=== PATIENT | female | born 1965 | race Caucasian/White ===

== ENCOUNTER → 2020-05-14 | Outpatient (CLI) | payer OTHER ==
--- NOTE | 2020-05-14 10:18 | CT ---
EXAMINATION TYPE: CT abdomen pelvis w con DATE OF EXAM: 05/14/2020 HISTORY: Localized swelling, mass; Lower abdominal pain CT DLP: 650.90mGycm Automated Exposure Control for Dose Reduction was Utilized. CONTRAST: CT scan of the abdomen and pelvis is performed with IV Contrast, patient injected with 100 ml mL of I sovue 300. COMPARISON: None. FINDINGS: LUNG BASES: No significant abnormality is appreciated. LIVER/GB: Cholecystectomy clips are present.. PANCREAS: No significant abnormality is seen. SPLEEN: No significant abnormality is seen. ADRENALS: Slight thickening to the left adrenal gland suggesting hyperplasia. Nonspecific heterogeneo us 2.1 x 1.6 cm right adrenal mass. Follow-up advised. KIDNEYS: There is 3 mm nonobstructing calculus upper pole left kidney coronal image 56. There is symm etric cortical medullary uptake and excretion from both kidneys with mild pyelocaliectasis on the lef t but no hydroureter or obstructing ureter calculus seen. No intraluminal calculus in bladder. BOWEL: Oral contrast reaches level of distal transverse colon making the evaluation of distal bowel s lightly suboptimal. No suspicious small or large bowel dilatation is seen. Mild wall thickening in th e left colon. UTERUS/ADNEXA: Uterus suspect is surgically absent. Some residual soft tissue and phleboliths in the pelvis are noted. LYMPH NODES: No greater than 1cm abdominal or pelvic lymph nodes are appreciated. OSSEOUS STRUCTURES: Some ossific fusion of the L3 and L4 vertebra. Lumbar spine alignment satisfactor y. Mild/moderate narrowing and spurring of both hip joints. OTHER: No significant additional abnormality is seen. IMPRESSION: Possible mild distal uncomplicated acute colitis versus product of poor distention. No soto spicious focal mass or fluid collection. Mild left-sided hydronephrosis without delayed excretion. No obstructing mass or calculus.
== END | disposition home or self-care (01) ==
LOC: RADCTMAIN 07:48
PROVIDERS: ATTEND Family Medicine
DX: N13.30 Unspecified hydronephrosis (principal)
CPT/HCPCS: 74177; Q9967

== ENCOUNTER → 2020-06-04 | Outpatient (CLI) | payer OTHER ==
--- NOTE | 2020-06-08 07:39 | MM ---
Reason for exam: screening (asymptomatic). Last mammogram was performed 5 years and 4 months ago. History: Family history of breast cancer in maternal grandmother. Benign ultrasound-guided core biopsy of the right breast, April 27, 2011. Excisional biopsy of the right breast, 2003. Excisional biopsy of the right breast, 2001. Excisional biopsy of the right breast, 1998. Benign excisional biopsy, April 30, 1997. Physical Findings: A clinical breast exam by your physician is recommended on an annual basis and results should be correlated with mammographic findings. MG Screening Mammo w CAD Bilateral CC and MLO view(s) were taken. Prior study comparison: January 28, 2015, bilateral MG diagnostic mammo w CAD [facility]. March 06, 2013, bilateral digital screening mammo w/CAD. The breast tissue is extremely dense which could obscure a lesion on mammography. Previous mammotome biopsy in the right breast. Focal asymmetry increased with calcifications upper inner quadrant 6.2cm from nipple. This finding is changed when compared with previous exams. ASSESSMENT: Incomplete: need additional imaging evaluation, BI-RAD 0 RECOMMENDATION: Special view mammogram of the right breast. If lesion persists on supplemental views, image directed ultrasound is recommended. [facility] will attempt to contact patient to return for supplemental views and ultrasound if indicated.
== END | disposition home or self-care (01) ==
LOC: RADMAMWWP 07:35
PROVIDERS: ATTEND Family Medicine
DX: Z12.31 Encounter for screening mammogram for malignant neoplasm of breast (principal)
CPT/HCPCS: 77067

== ENCOUNTER → 2020-06-04 | Outpatient (CLI) | payer OTHER | END | disposition home or self-care (01) | LOC: LABPAT 07:37 | PROVIDERS: ATTEND Surgery | DX: Z01.818 Encounter for other preprocedural examination (principal); K43.0 Incisional hernia with obstruction, without gangrene | CPT/HCPCS: 86850; 86870; 86880; 86900; 86901 ==

== ENCOUNTER → 2020-06-14 | Outpatient (CLI) | payer OTHER ==
--- NOTE | 2020-06-14 11:21 | MM ---
Reason for exam: additional evaluation requested from abnormal screening. Last mammogram was performed less than 1 month ago. History: Family history of breast cancer in maternal grandmother. Benign ultrasound-guided core biopsy of the right breast, April 27, 2011. Excisional biopsy of the right breast, 2003. Excisional biopsy of the right breast, 2001. Excisional biopsy of the right breast, 1998. Benign excisional biopsy, April 30, 1997. Physical Findings: Patient refused breast exam. MG Work Up Mamm w CAD RT Spot compression CC, spot compression MLO, and LM view(s) were taken of the right breast. Prior study comparison: June 04, 2020, bilateral MG screening mammo w CAD. January 28, 2015, bilateral MG diagnostic mammo w CAD [facility]. The breast tissue is extremely dense which could obscure a lesion on mammography. These results were verbally communicated with the patient and result sheet given to the patient on 06/14/20. ASSESSMENT: Benign, BI-RAD 2 RECOMMENDATION: Return to routine screening mammogram schedule for both breasts.
== END | disposition home or self-care (01) ==
LOC: RADMAMWWP 09:26
PROVIDERS: ATTEND Family Medicine
DX: R92.8 Other abnormal and inconclusive findings on diagnostic imaging of breast (principal)
CPT/HCPCS: 77065

== ENCOUNTER 2020-06-15 07:57 | Day surgery (SDC) | payer OTHER ==
[2020-06-14 09:38] VITALS: BMI 24.4
[~2020-06-15 07:57] MED LIST: ACETAMINOPHEN TAB 500 MG TAB PO ONE; DEXAMETHASONE SOD PHOSPHATE 4 MG/ML 1 ML VIAL IV ONE; LIDOCAINE 1% (10MG/ML) FOR IV START INTRADERMA PRN; MIDAZOLAM 2 MG/2 ML VIAL IV PRN; ONDANSETRON 4 MG/2 ML VIAL IVP ONE
[2020-06-15] MEDS: LACTATED RINGERS 1,000 ML IV SCH ×2 (08:26→13:22)
[2020-06-15] MEDS: HEPARIN SODIUM,PORCINE 5,000 UNIT/ML 1 ML VIAL SQ ONE ×2 (08:27→09:17)
[2020-06-15] MEDS ORDERED: ACETAMINOPHEN TAB 500 MG TAB ONE (08:30)
--- NOTE | 2020-06-15 09:49 | P.GSHP ---
History of Present Illness H&P Date: 06/15/20 Chief Complaint: Incisional hernia This a 55-year-old female who presents today for laparoscopic robotic-assisted repair of incisional hernia. Patient presents history of laparotomy. She has developed incisional hernia near her midportion of her midline scar. Past Medical History Past Medical History: Myocardial Infarction (DC) Additional Past Medical History / Comment(s): INCISIONAL HERNIA, DC ( 35 YRS O LD) Last Myocardial Infarction Date:: 1999 History of Any Multi-Drug Resistant Organisms: None Reported Past Surgical History: Adenoidectomy, Appendectomy, Breast Surgery, Section, Cholecystectomy, Heart Catheterization, Hysterectomy, Tonsillectomy Additional Past Surgical History / Comment(s): RT BREAST BX X 6. COLONOSCOPY. BRONCHOSCOPY Past Anesthesia/Blood Transfusion Reactions: Previous Problems w/ Anesthesia, Motion Sickness, Postoperative Nausea & Vomiting (PONV) Additional Past Anesthesia/Blood Transfusion Reaction / Comment(s): HAS HARD TIME WAKING UP FROM ANESTHESIA. GETS SEVERE PROJECTILE PONV WITH MINIMAL ANESTHESIA Past Psychological History: No Psychological Hx Reported Smoking Status: Never smoker Past Alcohol Use History: None Reported Past Drug Use History: None Reported - Past Family History Mother Family Medical History: Cancer Father Family Medical History: Blood Disorder Additional Family Medical History / Comment(s): HAS CLOTTING DISORDER Medications and Allergies Home Medications Medication Instructions Recorded Confirmed Type Acetaminophen Tab [Tylenol] 650 mg PO Q6H PRN 06/14/20 06/14/20 History Allergy Rx (Unknown Name) 1 tab PO DAILY 06/14/20 History Wheat Germ 1 dose PO DAILY 06/14/20 History Allergies Allergy/AdvReac Type Severity Reaction Status Date / Time codeine Allergy Rash/Hives Verified 06/15/20 08:09 Surgical - Exam Vital Signs Temp Pulse Resp BP Pulse Ox 97.5 F L 84 17 149/71 96 06/15/20 08:17 06/15/20 08:17 06/15/20 08:17 06/15/20 08:17 06/15/20 08:17 - General well developed, well nourished, no distress - Eyes PERRL - ENT normal pinna - Neck no masses - Respiratory normal expansion - Cardiovascular Rhythm: regular - Abdomen 5 cm incisional hernia Abdomen: soft, non tender Assessment and Plan Assessment: Incisional hernia. We'll perform laparoscopic robotic-assisted repair.
[2020-06-15] MEDS ORDERED: NEOSTIGMINE 1 MG/ML 10 ML VIAL ONE (10:04)
[2020-06-15] MEDS ORDERED: ROPIVACAINE 5 MG/ML 30 ML VIAL ONE (10:04)
[2020-06-15] MEDS ORDERED: ROCURONIUM 10 MG/ML (10 ML VIAL) IV ONE (10:04)
[2020-06-15] MEDS ORDERED: fentaNYL (PF) 50 MCG/ML 2 ML AMP ONE (10:04)
[2020-06-15] MEDS ORDERED: ONDANSETRON 4 MG/2 ML VIAL ONE (10:04)
[2020-06-15] MEDS ORDERED: MIDAZOLAM 2 MG/2 ML VIAL ONE (10:04)
[2020-06-15] MEDS ORDERED: DEXAMETHASONE SOD PHOSPHATE 4 MG/ML 1 ML VIAL ONE (10:04)
[2020-06-15] MEDS ORDERED: LIDOCAINE 1% INJ 10MG/ML (20 ML MDV) ONE (10:04)
[2020-06-15] MEDS ORDERED: KETOROLAC 15 MG/ML 1 ML VIAL ONE (10:04)
[2020-06-15] MEDS ORDERED: GLYCOPYRROLATE 0.2 MG/ML 2 ML VIAL ONE (10:04)
[2020-06-15] MEDS ORDERED: SUCCINYLCHOLINE CHLORIDE 100 MG/5 ML SYR IV ONE (10:04)
[2020-06-15] MEDS ORDERED: PROPOFOL 10 MG/ML 20 ML VIAL IV ONE (10:04)
[2020-06-15] MEDS ORDERED: BUPIVACAINE (PF) 0.5% 30 ML VIAL SQ ONE (10:29)
[2020-06-15] MEDS ORDERED: LACTATED RINGERS 1,000 ML IV ONE (11:05)
--- NOTE | 2020-06-15 11:17 | P.OP ---
Date of Procedure: 06/15/20 Preoperative Diagnosis: Incisional hernia Postoperative Diagnosis: Incisional hernia Procedure(s) Performed: Laparoscopic robotic-assisted repair of incisional hernia Partial omentectomy Anesthesia: ELYSE Surgeon: Fabio Acosta Pathology: other (Omentum) Condition: stable Disposition: PACU Description of Procedure: MThe patient was placed on the operating table in the supine position. He received general anesthesia. His abdomen was prepped and draped usual fashion. Using a 5 mm optical trocar under direct visualization the peritoneal cavity was entered in the left upper quadrant. The abdomen was then insufflated. The laparoscope was placed back into the perineal cavity. Next a 8 mm robotic trocar was placed in the left lower quadrant and a 12 mm robotic trocar was placed in the left lateral position. The original 5 mm trocar was exchanged for a 8 mm robotic trocar. The patient's placed in the left side up position. And the patient was docked to the robot. The incisional hernia was visualized. Using hook cautery the peritoneum over the incisional hernia was excised. Incarcerated omentum was dissected free with cautery and sent to pathology. The fascial opening was repaired using 0V LOC suture. Next a piece of 11 cm round ventral light ST mesh was placed into the. Cavity and secured with 2 OV lock suture. The patient was undocked the robot. The needles were retrieved. The fascia of the 12 mm trocar site was closed with 0 Ethibond suture. Skin was closed interrupted 3-0 Monocryl suture. Dermabond dressings was applied. Patient tolerated procedure well and was sent to recovery room stable condition.
[2020-06-15 11:23] VITALS: RESP 16; TEMP 97.9
[2020-06-15] MEDS: HYDROmorphone 0.5 MG/0.5 ML SYRINGE IVP PRN ×2 (11:41→11:51)
--- NOTE | 2020-06-15 12:18 | P.ANPRN ---
Procedure Note - Anesthesia - Nerve Block Performed Bilateral Rectus Abdominis Single Time Out Performed: Yes Date of Procedure: 06/15/20 Procedure Start Time: 09:05 Procedure Stop Time: 09:12 Location of Patient: PreOp Indication: Acute Post-Operative Pain, Requested by Surgeon Sedation Type: Sedate with meaningful contact maintained Position: Supine Needle Types: Pajunk Needle Gauge: 21 Ultrasound used to visualize needle placement: Yes Ultrasound used to observe medication spread: Yes Blood Aspirated: No Pain Paresthesia on Injection Noted: No Resistance on Injection: Normal Image Stored and Saved: Yes Events: Uneventful and Well Tolerated (ropi .5% 20cc plus dexamethasone 4mg bilatreally)
[2020-06-15] MEDS ORDERED: PROMETHAZINE INJ 3.25 MG in SODIUM CHLORIDE 0.9% 50 ML IVPB ONE (15:00)
[2020-06-15 15:33] VITALS: BP 166/78; PULSE 76
== END 2020-06-15 16:49 | disposition home or self-care (01) ==
LOC: OR 07:57
PROVIDERS: ATTEND Surgery
DX: K43.0 Incisional hernia with obstruction, without gangrene (principal); I25.2 Old myocardial infarction; Z98.890 Other specified postprocedural states; Z90.49 Acquired absence of other specified parts of digestive tract; Z98.891 History of uterine scar from previous surgery; Z90.710 Acquired absence of both cervix and uterus; Z83.2 Family history of diseases of the blood and blood-forming organs and certain disorders involving the immune mechanism; Z80.9 Family history of malignant neoplasm, unspecified; Z88.5 Allergy status to narcotic agent; Z79.899 Other long term (current) drug therapy
CPT/HCPCS: 64488; 86900; 86901; 86850; 86870; 86880; 88302; 49655; C1781; J2250; J1644; J1100; J2550; J2710; J0690; J2405; J2001; J3010; J2795; J1885; J0330; J2704; J1170

== ENCOUNTER 2020-06-24 10:00 | Day surgery (SDC) | payer OTHER ==
[2020-06-22 13:52] VITALS: BMI 24.4
[~2020-06-24 10:00] MED LIST changes: -ACETAMINOPHEN TAB 500 MG TAB PO ONE; -DEXAMETHASONE SOD PHOSPHATE 4 MG/ML 1 ML VIAL IV ONE; +LACTATED RINGERS 1,000 ML IV SCH; -MIDAZOLAM 2 MG/2 ML VIAL IV PRN; -ONDANSETRON 4 MG/2 ML VIAL IVP ONE
[2020-06-24 10:49] VITALS: RESP 16; TEMP 98.4
[2020-06-24] MEDS ORDERED: ONDANSETRON 4 MG/2 ML VIAL ONE (11:02)
[2020-06-24] MEDS ORDERED: KETOROLAC 15 MG/ML 1 ML VIAL ONE (11:02)
[2020-06-24] MEDS ORDERED: ONDANSETRON 4 MG/2 ML VIAL IVP ONE (11:07)
[2020-06-24] MEDS ORDERED: KETOROLAC 15 MG/ML 1 ML VIAL IVP ONE (11:07)
--- NOTE | 2020-06-24 11:11 | P.GSHP ---
History of Present Illness H&P Date: 06/24/20 Chief Complaint: Colitis This a 55-year-old female said complaints of abdominal pain. Her recent CAT scan shows evidence of colitis. She presents today for colonoscopy Past Medical History Past Medical History: Myocardial Infarction (DE) Additional Past Medical History / Comment(s): DE (35 YRS OLD), REPAIR OF INCISIONAL HERNIA 06/15/20-STATES INCISION HEALING WITH NO SIGNS OF INFECTION. Last Myocardial Infarction Date:: 1999 History of Any Multi-Drug Resistant Organisms: None Reported Past Surgical History: Adenoidectomy, Appendectomy, Breast Surgery, Section, Cholecystectomy, Hernia Repair, Hysterectomy, Tonsillectomy Additional Past Surgical History / Comment(s): RT BREAST BX X 6, INCISIONAL HERNIA (ROBOTIC-06/15/20). COLONOSCOPY. BRONCHOSCOPY Past Anesthesia/Blood Transfusion Reactions: Previous Problems w/ Anesthesia, Motion Sickness, Postoperative Nausea & Vomiting (PONV) Additional Past Anesthesia/Blood Transfusion Reaction / Comment(s): HAS HARD TIME WAKING UP FROM ANESTHESIA. GETS SEVERE PONV WITH MINIMAL ANESTHESIA Past Psychological History: No Psychological Hx Reported Smoking Status: Never smoker Past Alcohol Use History: None Reported Past Drug Use History: None Reported - Past Family History Mother Family Medical History: Cancer Father Family Medical History: Blood Disorder Additional Family Medical History / Comment(s): HAS CLOTTING DISORDER Medications and Allergies Home Medications Medication Instructions Recorded Confirmed Type Acetaminophen Tab [Tylenol] 650 mg PO Q6H PRN 06/14/20 06/22/20 History Allergy Rx (Unknown Name) 1 tab PO DAILY 06/14/20 06/22/20 History Wheat Germ 1 dose PO DAILY 06/14/20 06/22/20 History Ibuprofen [Motrin] 600 mg PO Q6HR PRN #40 tab 06/15/20 06/22/20 Rx Allergies Allergy/AdvReac Type Severity Reaction Status Date / Time codeine Allergy Rash/Hives Verified 06/24/20 10:49 Surgical - Exam Vital Signs Temp Pulse Resp BP Pulse Ox 98.4 F 90 16 106/84 94 L 06/24/20 10:48 06/24/20 10:48 06/24/20 10:48 06/24/20 10:48 06/24/20 10:48 - General well developed, well nourished, no distress - Eyes PERRL - ENT normal pinna - Neck no masses - Respiratory normal expansion - Cardiovascular Rhythm: regular - Abdomen Abdomen: soft, non tender Assessment and Plan Assessment: Colitis. We'll perform colonoscopy.
[2020-06-24] MEDS ORDERED: PROPOFOL 10 MG/ML 20 ML VIAL IV ONE (11:12)
--- NOTE | 2020-06-24 11:29 | P.OP ---
Date of Procedure: 06/24/20 Preoperative Diagnosis: Colitis Postoperative Diagnosis: Sigmoid colon polyp Diverticulosis Colonic prep Procedure(s) Performed: Colonoscopy Anesthesia: MAC Surgeon: Fabio Acosta Pathology: other (Sigmoid colon polyp) Condition: stable Disposition: PACU Description of Procedure: Patient's placed on the endoscopy table in the lateral position. She received IV sedation. Digital rectal exam was performed which revealed no abnormalities. Flexible colonoscope was then placed patient anus and passed throughout the colon. The patient a very poor colonic prep. There is a large amount of liquid stool colon. The classical cannot be advanced beyond the transverse colon secondary to large amount of liquid stool. Scope was then brought back and descending colon there is diverticular changes. There is more extensive diverticular changes and sigmoid colon; was a peduncular polyp was removed with snare. Scope was brought back the rectum and this appeared normal. Scope was withdrawn for patient.
[2020-06-24 11:45] VITALS: BP 132/84; PULSE 78
== END 2020-06-24 12:17 | disposition home or self-care (01) ==
LOC: ORWHC2ENDO 10:00
PROVIDERS: ATTEND Surgery
DX: D12.5 Benign neoplasm of sigmoid colon (principal); K57.30 Diverticulosis of large intestine without perforation or abscess without bleeding; I25.2 Old myocardial infarction; Z98.890 Other specified postprocedural states; Z90.49 Acquired absence of other specified parts of digestive tract; Z90.710 Acquired absence of both cervix and uterus; Z98.891 History of uterine scar from previous surgery; Z83.2 Family history of diseases of the blood and blood-forming organs and certain disorders involving the immune mechanism; Z79.899 Other long term (current) drug therapy; Z88.5 Allergy status to narcotic agent; Z80.9 Family history of malignant neoplasm, unspecified
CPT/HCPCS: 88305; 45385; J2405; J1885; J2704

== ENCOUNTER → 2020-11-15 | Outpatient (CLI) | payer OTHER ==
--- NOTE | 2020-11-16 04:47 | MR ---
EXAMINATION TYPE: MR abdomen wo/w con DATE OF EXAM: 11/15/2020 COMPARISON: CT abdomen pelvis 05/14/2020. HISTORY: Neoplasm of adrenal gland CONTRAST: Standard multiplanar, multisequence MRI departmental protocol utilizing 7.5 mL intravenous Gadavist g adolinium contrast. Liver has normal signal pattern. The bile ducts are not dilated. Spleen is intact. Stomach is intact. There is no evidence of pancreatic mass. Pancreatic duct appears normal. Gallbladder appears absent. There is no evidence of pleural effusion. There is no pericardial effusion. Kidneys have normal size and contour. There is no hydronephrosis. There is 2 cm mass involving right adrenal gland. This is a somewhat triangle shaped and not changed in size compared to old CT scan of 05/24/2020. The out of phase images show decreased signal that suggests presence of some fat. There is no patholo gic enhancement. There is normal enhancement of the portal venous system. There is normal enhancement of the inferior vena cava and the renal veins. There is no sign of ascites. The lumbar spine is inta ct. I see no bony destructive process. There is no evidence of retroperitoneal adenopathy. IMPRESSION: Triangular-shaped mass on the right adrenal gland not changed in size compared to old exam 6 months a go. There is also some fat content and no pathologic enhancement. Findings suggest benign disease.
== END | disposition home or self-care (01) ==
LOC: RADMRIMAIN 18:18
PROVIDERS: ATTEND Internal Medicine Hematology & Oncology
DX: D44.11 Neoplasm of uncertain behavior of right adrenal gland (principal)
CPT/HCPCS: 74183; A9585

== ENCOUNTER → 2021-05-12 | Outpatient (CLI) | payer OTHER ==
[2021-05-12 19:04] LABS: Basophils # (A) 0.07 X 10*3/uL (0.00-0.10); Eosinophils % (A) 1.4 %; HCT 41.6 % (37.2-46.3); HGB 13.8 g/dL (12.0-15.0); Lymphocytes # (A) 2.37 X 10*3/uL (0.90-5.00); Lymphocytes % (A) 34.1 %; MCH 30.3 pg (27.0-32.0); MCHC 33.2 g/dL (32.0-37.0); MCV 91.4 fL (80.0-97.0); Mean Platelet Volume 10.6 fL (9.5-12.2); Monocytes # (A) 0.51 X 10*3/uL (0.20-1.00); Monocytes % (A) 7.3 %; Neutrophils # (A) 3.86 X 10*3/uL (1.80-7.70); Neutrophils % (A) 55.8 %; Platelet Count 242 X 10*3/uL (140-440); RBC 4.55 X 10*6/uL (4.10-5.20); WBC 6.94 X 10*3/uL (4.50-10.00)
== END | disposition home or self-care (01) ==
LOC: LABWHC1 13:35
PROVIDERS: ATTEND Surgery
DX: K40.90 Unilateral inguinal hernia, without obstruction or gangrene, not specified as recurrent (principal)
CPT/HCPCS: 36415; 85025

== ENCOUNTER 2021-05-18 09:51 | Day surgery (SDC) | payer OTHER ==
[2021-05-16 13:12] VITALS: BMI 24.7
[~2021-05-18 09:51] MED LIST changes: +ACETAMINOPHEN TAB 500 MG TAB PO PRN; +DEXAMETHASONE SOD PHOSPHATE 4 MG/ML 1 ML VIAL IV ONE; +HEPARIN SODIUM,PORCINE/PF 5,000 UNIT/0.5 ML SYRINGE SQ PRN; +MIDAZOLAM 2 MG/2 ML VIAL IV PRN; +ONDANSETRON 4 MG/2 ML VIAL IVP ONE
--- NOTE | 2021-05-18 11:49 | P.GSHP ---
History of Present Illness H&P Date: 05/18/21 Chief Complaint: Right inguinal hernia This a 56-year-old female has developed a right inguinal hernia. Patient presents today for laparoscopic robotic-assisted repair. Past Medical History Past Medical History: No Reported History History of Any Multi-Drug Resistant Organisms: None Reported Past Surgical History: Adenoidectomy, Appendectomy, Breast Surgery, Section, Cholecystectomy, Hernia Repair, Hysterectomy, Tonsillectomy Additional Past Surgical History / Comment(s): RT BREAST BX X 6. COLONOSCOPY. BRONCHOSCOPY Past Anesthesia/Blood Transfusion Reactions: Previous Problems w/ Anesthesia, Motion Sickness, Postoperative Nausea & Vomiting (PONV) Additional Past Anesthesia/Blood Transfusion Reaction / Comment(s): HAS HARD TIME WAKING UP FROM ANESTHESIA. GETS SEVERE PONV WITH MINIMAL ANESTHESIA Past Psychological History: No Psychological Hx Reported Smoking Status: Never smoker Past Alcohol Use History: None Reported Past Drug Use History: None Reported - Past Family History Mother Family Medical History: Cancer Father Family Medical History: Blood Disorder Additional Family Medical History / Comment(s): HAS CLOTTING DISORDER Medications and Allergies Home Medications Medication Instructions Recorded Confirmed Type Acetaminophen Tab [Tylenol] 650 mg PO Q6H PRN 06/14/20 05/16/21 History Allergy Rx (Unknown Name) 1 tab PO DAILY 06/14/20 05/16/21 History Wheat Germ 1 dose PO DAILY 06/14/20 05/16/21 History Aspirin 81 mg PO DAILY 05/16/21 05/16/21 History Digestive Help Pill 1 tab PO DAILY 05/16/21 05/16/21 History Allergies Allergy/AdvReac Type Severity Reaction Status Date / Time codeine Allergy Rash/Hives Verified 05/16/21 13:04 Surgical - Exam - General well developed, well nourished, no distress - Eyes PERRL - ENT normal pinna - Neck no masses - Respiratory normal expansion - Cardiovascular Rhythm: regular - Abdomen Abdomen: soft, non tender Hernia: inguinal (Right) Assessment and Plan Assessment: Right inguinal hernia. We'll perform laparoscopic robotic-assisted repair.
[2021-05-18] MEDS ORDERED: PROPOFOL 10 MG/ML 20 ML VIAL IV ONE (12:08)
[2021-05-18] MEDS ORDERED: fentaNYL (PF) 50 MCG/ML 2 ML AMP ONE (12:08)
[2021-05-18] MEDS ORDERED: KETAMINE 10 MG/ML 20 ML VIAL ONE (12:08)
[2021-05-18] MEDS ORDERED: ROCURONIUM 10 MG/ML (5 ML VIAL) IV ONE (12:08)
[2021-05-18] MEDS ORDERED: diphenhydrAMINE 50 MG/ML 1 ML VIAL ONE (12:08)
[2021-05-18] MEDS ORDERED: LIDOCAINE 1% INJ 10MG/ML (20 ML MDV) ONE (12:08)
[2021-05-18] MEDS ORDERED: GLYCOPYRROLATE 0.2 MG/ML 2 ML VIAL ONE (12:08)
[2021-05-18] MEDS ORDERED: SUCCINYLCHOLINE CHLORIDE 100 MG/5 ML SYR IV ONE (12:08)
[2021-05-18] MEDS ORDERED: MIDAZOLAM 2 MG/2 ML VIAL ONE (12:08)
[2021-05-18] MEDS ORDERED: NEOSTIGMINE 1 MG/ML 10 ML VIAL ONE (12:08)
[2021-05-18] MEDS ORDERED: BUPIVACAINE (PF) 0.5% 30 ML VIAL SQ ONE (12:33)
[2021-05-18] MEDS ORDERED: LACTATED RINGERS 1,000 ML IV ONE (12:37)
--- NOTE | 2021-05-18 13:07 | P.OP ---
Date of Procedure: 05/18/21 Preoperative Diagnosis: Right inguinal hernia Postoperative Diagnosis: Right inguinal hernia Procedure(s) Performed: Laparoscopic robotic-assisted repair of right inguinal hernia Anesthesia: ELYSE Surgeon: Fabio Acosta Estimated Blood Loss (ml): 5 Pathology: none sent Condition: stable Disposition: PACU Description of Procedure: The patient's placed on the operating table in the supine position. The patient received general anesthesia. The patient's abdomen was prepped and draped in usual sterile fashion. The skin was anesthetized 1% local Xylocaine at the incision sites. Using an 11 blade a skin incision was made at the umbilicus. The fascia was grasped with a Ann and then the peritoneal cavity was entered with the Veress needle. Position of the Veress needle was confirmed with a positive drop test. After adequate insufflation a 5 mm trocar was placed into the peritoneal cavity. The Laparoscope was placed the peritoneal cavity. And a robotic 8 mm trocar was placed in the right lateral position and then another 8 mm robotic trochars placed in the left lateral position. The original 5 mm trocar was exchanged for a 12 mm trocar. The patient was placed in reverse Trendelenburg and then the patient was docked to the robot. Next the peritoneum over top of the hernia was incised and then using blunt and sharp dissection and electrocautery the hernia sac was dissected free from the round ligament. The hernia sac was completely reduced into the peritoneal cavity. And then using the Pro first coat sander mesh the hernia was repaired. The peritoneum was then sutured with 20V lock suture. The patient was then undocked the robot. The needle was withdrawn from the peritoneal cavity. The umbilical trocar site was closed with 0 Ethibond suture. The skin was closed interrupted 3-0 Monocryl suture. Dermabond dressing was applied. Patient was sent to recovery in stable condition.
[2021-05-18 13:23] VITALS: TEMP 97
[2021-05-18 13:36] VITALS: RESP 16
[2021-05-18] MEDS ORDERED: ONDANSETRON 4 MG/2 ML VIAL ONE (13:39)
[2021-05-18] MEDS ORDERED: ONDANSETRON 4 MG/2 ML VIAL IVP ONE (13:42)
[2021-05-18] MEDS: HYDROmorphone 0.5 MG/0.5 ML SYRINGE IVP PRN ×2 (13:42→13:54)
[2021-05-18 15:00] VITALS: BP 120/78; PULSE 63
== END 2021-05-18 15:50 | disposition home or self-care (01) ==
LOC: OR 09:51
PROVIDERS: ATTEND Surgery
DX: K40.90 Unilateral inguinal hernia, without obstruction or gangrene, not specified as recurrent (principal); Z98.891 History of uterine scar from previous surgery; Z90.49 Acquired absence of other specified parts of digestive tract; Z90.710 Acquired absence of both cervix and uterus; Z98.890 Other specified postprocedural states; Z79.82 Long term (current) use of aspirin; Z79.899 Other long term (current) drug therapy; Z88.5 Allergy status to narcotic agent
CPT/HCPCS: 49650; S2900

== ENCOUNTER → 2021-06-06 | Outpatient (CLI) | payer OTHER ==
--- NOTE | 2021-06-06 08:55 | US ---
EXAMINATION TYPE: US axilla RT DATE OF EXAM: 06/06/2021 COMPARISON: NONE CLINICAL HISTORY: R59.0 ENLARGES LYMPH NODES. palpable within right axilla x 1 month 2 normal appearing lymph nodes seen, largest = 0.8 x 0.8 x 0.5cm IMPRESSION: Benign right axilla
--- NOTE | 2021-06-07 11:40 | MM ---
Reason for exam: screening (asymptomatic). Last mammogram was performed 1 year ago. History: Family history of breast cancer in maternal grandmother. Benign ultrasound-guided core biopsy of the right breast, April 27, 2011. Excisional biopsy of the right breast, 2003. Excisional biopsy of the right breast, 2001. Excisional biopsy of the right breast, 1998. Benign excisional biopsy, April 30, 1997. Physical Findings: A clinical breast exam by your physician is recommended on an annual basis and results should be correlated with mammographic findings. MG Screening Mammo w CAD Bilateral CC and MLO view(s) were taken. Prior study comparison: June 04, 2020, bilateral MG screening mammo w CAD. January 28, 2015, bilateral MG diagnostic mammo w CAD [facility]. The breast tissue is heterogeneously dense. This may lower the sensitivity of mammography. Finding: There is a 6 mm circumscribed round mass located 9-10 cm from the nipple in the posterior, central position of the left breast. Previous mammotome biopsy in the right breast. There is a chronic nodularity in the right breast. New finding and increase in size since June 04, 2020 and January 28, 2015. ASSESSMENT: Incomplete: need additional imaging evaluation, BI-RAD 0 RECOMMENDATION: Ultrasound of the left breast. [facility] will attempt to contact patient to return for ultrasound.
== END | disposition home or self-care (01) ==
LOC: RADMAMWWP 07:47
PROVIDERS: ATTEND Family Medicine
DX: Z12.31 Encounter for screening mammogram for malignant neoplasm of breast (principal); R59.0 Localized enlarged lymph nodes
CPT/HCPCS: 77067

== ENCOUNTER → 2021-06-10 | Outpatient (CLI) | payer OTHER ==
--- NOTE | 2021-06-10 11:24 | USB ---
Reason for exam: additional evaluation requested from abnormal screening. History: Family history of breast cancer in maternal grandmother. Benign ultrasound-guided core biopsy of the right breast, April 27, 2011. Excisional biopsy of the right breast, 2003. Excisional biopsy of the right breast, 2001. Excisional biopsy of the right breast, 1998. Benign excisional biopsy, April 30, 1997. Physical Findings: Nurse did not find any significant physical abnormalities on exam. US Breast Workup Limited LT Left limited breast ultrasound including focal area of concern, retroareolar and axilla demonstrates a 0.4 x 0.5 x 0.2cm oval lymph node at 4 o'clock and a 0.6 x 0.6 x 0.3cm oval lymph node at 5 o'clock. These results were verbally communicated with the patient and result sheet given to the patient on 06/10/21. ASSESSMENT: Benign, BI-RAD 2 RECOMMENDATION: Follow-up diagnostic mammogram of the left breast in 6 months.
== END | disposition home or self-care (01) ==
LOC: RADUSWWP 07:59
PROVIDERS: ATTEND Family Medicine
DX: R92.8 Other abnormal and inconclusive findings on diagnostic imaging of breast (principal)

== ENCOUNTER → 2021-10-07 | Outpatient (CLI) | payer OTHER ==
--- NOTE | 2021-10-07 12:14 | XR ---
EXAMINATION TYPE: XR abdomen complete w decub DATE OF EXAM: 10/07/2021 COMPARISON: NONE HISTORY: R 10.9 TECHNIQUE: Supine, upright, and left side down lateral decubitus views of the abdomen are obtained f or images. FINDINGS: Surgical clips are present in the right upper quadrant. Retained fecal debris present thro ughout the distribution of the colon. Surgical clips are present in the right hemiabdomen. Multiple p hleboliths are present within the pelvis. There is no evidence for pneumoperitoneum. The bowel gas pattern is unremarkable as there is air throughout nondilated small and large bowel. No sizeable air fluid levels. No mass effects are seen. No unusual calcifications. IMPRESSION: Correlate for fecal stasis. Stopped changes. Follow-up as indicated.
== END | disposition home or self-care (01) ==
LOC: RADXRMAIN 08:58
PROVIDERS: ATTEND Family Medicine
DX: R10.9 Unspecified abdominal pain (principal)
CPT/HCPCS: 74021

== ENCOUNTER → 2022-07-07 | Outpatient (CLI) | payer OTHER ==
--- NOTE | 2022-07-07 10:30 | US ---
EXAMINATION TYPE: US abdomen complete DATE OF EXAM: 07/07/2022 COMPARISON: NONE CLINICAL HISTORY: R10.817 ABDOMINAL TENDERNESS. abdominal tenderness, bloating, cholecystecomy TECHNIQUE: Multiple sonographic images of the abdomen are obtained. FINDINGS: EXAM MEASUREMENTS: Liver Length: 15.1 cm Gallbladder Wall: Surgically absent CBD: 0.7 cm Spleen: 7.9 cm Right Kidney: 10.2 x 3.7 x 4.4 cm Left Kidney: 9.0 x 3.3 x 3.2 cm LANDSCAPER HELPER NOTES: technical limitations due to large amount of overlying bowel content Pancreas: Tail obscured by overlying bowel gas Liver: appears wnl Gallbladder: Surgically absent Evidence for sonographic Baum's sign: no CBD: wnl Spleen: wnl Right Kidney: no evidence of hydronephrosis Left Kidney: limited evaluation, no evidence of hydronephrosis Upper IVC: wnl Abd Aorta: visualized portions appear wnl IMPRESSION: 1. No suspicious acute ultrasound abnormality of the abdomen.
== END | disposition home or self-care (01) ==
LOC: RADUSWWP 08:03
PROVIDERS: ATTEND Family Medicine
DX: R10.817 Generalized abdominal tenderness (principal); Z90.49 Acquired absence of other specified parts of digestive tract
CPT/HCPCS: 76700

== ENCOUNTER 2022-11-15 07:59 | Day surgery (SDC) | payer OTHER ==
[~2022-11-15 07:59] MED LIST changes: +HYDROmorphone 0.5 MG/0.5 ML SYRINGE IVP PRN
[2022-11-15] MEDS: ONDANSETRON 4 MG/2 ML VIAL ONE ×2 (08:39→10:35)
[2022-11-15] MEDS ORDERED: SCOPOLAMINE 1 MG/72 HR PATCH TRANSDERM ONE (08:39)
[2022-11-15] MEDS ORDERED: ROCURONIUM 10 MG/ML (5 ML VIAL) IV ONE (09:22)
[2022-11-15] MEDS ORDERED: GLYCOPYRROLATE 0.2 MG/ML 2 ML VIAL ONE (09:22)
[2022-11-15] MEDS ORDERED: NEOSTIGMINE 1 MG/ML 10 ML VIAL ONE (09:22)
[2022-11-15] MEDS ORDERED: fentaNYL (PF) 50 MCG/ML 2 ML AMP ONE (09:22)
[2022-11-15] MEDS ORDERED: SUCCINYLCHOLINE CHLORIDE 200 MG/10 ML VIAL IV ONE (09:22)
[2022-11-15] MEDS ORDERED: MIDAZOLAM 2 MG/2 ML VIAL ONE (09:22)
[2022-11-15] MEDS ORDERED: PROPOFOL 10 MG/ML 20 ML VIAL IV ONE (09:22)
[2022-11-15] MEDS ORDERED: LIDOCAINE 4% LTA KIT (4 ML) TOPICAL ONE (09:22)
[2022-11-15] MEDS ORDERED: LIDOCAINE 2% INJ 20 MG/ML (2 ML VIAL) ONE (09:22)
[2022-11-15] MEDS ORDERED: PHENYLEPHRINE-0.9% NACL SYG 1,000 MCG/10 ML SYRINGE ONE (09:22)
[2022-11-15] MEDS ORDERED: KETAMINE 10 MG/ML 20 ML VIAL ONE (09:22)
[2022-11-15] MEDS ORDERED: BUPIVACAIN-EPI 0.25%-1:200,000 30 ML VIAL SQ ONE ×2 (09:47→09:54)
[2022-11-15 10:27] VITALS: TEMP 97.1
[2022-11-15 11:22] VITALS: RESP 16
[2022-11-15] MEDS ORDERED: droPERidol 5 MG/2 ML VIAL IVP ONE (12:00)
[2022-11-15 13:46] VITALS: BP 158/78; PULSE 76
--- NOTE | 2022-12-19 19:45 | P.OP ---
Date of Procedure: 11/15/22 Preoperative Diagnosis: Adhesions Postoperative Diagnosis: Adhesions Procedure(s) Performed: Laparoscopic lysis of adhesions Anesthesia: ELYSE Surgeon: Fabio Acosta Pathology: none sent Condition: stable Disposition: PACU Description of Procedure: The patient's placed on the operative table in the supine position. She received general endotracheal anesthesia. Her abdomen was prepped and draped usual sterile fashion. Using 11 blade an infra umbilical incision was made. And then using a pair of [place] clamps the fascia was grasped. The Veress needle was positioned into the pleural cavity. Position there still was confirmed with positive drop test. After adequate insufflation the 5 mm trocar was placed back into the peritoneal cavity. Next the laparoscope placed. Cavity. There were adhesions noted in the right lower quadrant. Next using a 5 mm optical trocar under direct vision a trocar was placed in the suprapubic position and then another eye millimeters trochars placed in the midline epigastric position. The adhesions were visualized right lower quadrant. Using the Harmonic scissors the adhesions were lysed. Care was taken to identify and preserve the bowel. After the adhesions were lysed. The ends for hemostasis. There is no bleeding seen. The trochars withdrawn. The skin was closed interrupted 3-0 Monocryl suture. Dermabond was applied. A shunt top she will sent to recovery in stable condition.
== END 2022-11-15 13:59 | disposition home or self-care (01) ==
LOC: OR 07:59
PROVIDERS: ATTEND Surgery
DX: K66.0 Peritoneal adhesions (postprocedural) (postinfection) (principal); Z88.5 Allergy status to narcotic agent; Z91.048 Other nonmedicinal substance allergy status; K21.9 Gastro-esophageal reflux disease without esophagitis; Z90.49 Acquired absence of other specified parts of digestive tract; Z79.899 Other long term (current) drug therapy
CPT/HCPCS: 44180; J2250; J0330; J1100; J2710; J0690; J2405; J3010; J2370; J2704; J1170; J1790; J1644; J2001

== ENCOUNTER → 2022-12-01 | Outpatient (CLI) | payer OTHER ==
--- NOTE | 2022-12-01 11:13 | PE ---
EXAMINATION TYPE: PET CT fusion skull to thigh DATE OF EXAM: 12/01/2022 COMPARISON: Most recent chest CT October 17, 2022. HISTORY: Solitary pulmonary nodule, abnormal CT. TECHNIQUE: Following the intravenous administration of 13.0 mCi of F-18 FDG, whole body images are p erformed from the skull base to the midthigh. Images are reviewed on the computer in the coronal, ax ial, and sagittal planes. Reconstructed rotating images are created on independent workstation and r eviewed on the computer. A localization and attenuation correction CT is performed in conjunction w ith the PET scan. Blood glucose level equals 100 SCAN: Initial Scan FINDINGS: SKULL BASE AND NECK: No areas of abnormal hypermetabolic uptake. CHEST, MEDIASTINUM, AND HILAR REGION: Stable 7 mm right basilar nodule axial image 99 does not show a bnormal hypermetabolic uptake. No areas of abnormal hypermetabolic uptake in the thorax are seen. ABDOMEN AND PELVIS: Stable low dense approximate 1.7 cm right adrenal mass without abnormal hypermeta bolic uptake consistent with benign lipid rich adenoma. Normal excretion. No areas of suspicious abno rmal hypermetabolic uptake. OSSEOUS STRUCTURES: No areas of abnormal hypermetabolic uptake. OTHER CT: Cardiomegaly is redemonstrated. There is ascending aortic aneurysm up to 4.1 cm. Somewhat s mall size thyroid. Cholecystectomy clips are redemonstrated. There are additional scattered phleboliths in the right pel vis and surgical sutures near the cecum. Uterus is surgically absent. IMPRESSION: No abnormal hypermetabolic uptake to suggest malignancy. Consider CT follow-up in 1 year time to reassess the right basilar subcentimeter nodule.
== END | disposition home or self-care (01) ==
LOC: RADPETMAIN 08:10
PROVIDERS: ATTEND Family Medicine
DX: R91.8 Other nonspecific abnormal finding of lung field (principal)
CPT/HCPCS: 78815; A9552

== ENCOUNTER → 2023-08-09 | Outpatient (CLI) | payer OTHER ==
--- NOTE | 2023-08-09 09:46 | CA ---
Transthoracic Echo Report Name: Vilma Yepez Age: 58 Gender: F : 1965 Exam Date: 08/09/2023 08:41 Exam Location: [facility] Ht (in): 63 Wt (lb): 160 Ordering Physician: Oc Santacruz DO Attending/Referring Phys: Kiera Wade [facility] [employer] Sander Missy Harris [facility] Procedure CPT: Indications: R01.1 cardiac murmur Cardiac Hx: Technical Quality: Fair Contrast 1: Agitated Saline Total Dose (mL): 5 Contrast 2: Total Dose (mL): MEASUREMENTS (Male / Female) Normal Values 2D ECHO LV Diastolic Diameter PLAX 3.7 cm 4.2 - 5.9 / 3.9 - 5.3 cm LV Systolic Diameter PLAX 2.8 cm IVS Diastolic Thickness 1.5 cm 0.6 - 1.0 / 0.6 - 0.9 cm LVPW Diastolic Thickness 1.3 cm 0.6 - 1.0 / 0.6 - 0.9 cm LV Relative Wall Thickness 0.8 LVOT Diameter 2.0 cm Aortic Root Diameter 4.4 cm Ascending Aorta Diameter 4.0 cm M-MODE Aortic Root Diameter MM 3.4 cm LA Systolic Diameter MM 2.7 cm LA Ao Ratio MM 0.8 AV Cusp Separation MM 2.1 cm DOPPLER AV Peak Velocity 92.9 cm/s AV Peak Gradient 3.5 mmHg AV Mean Velocity 66.4 cm/s AV Mean Gradient 2.0 mmHg AV Velocity Time Integral 22.3 cm AI Peak Velocity 375.6 cm/s AI Peak Gradient 56.4 mmHg AI Pressure Half Time 527.8 ms LVOT Peak Velocity 96.5 cm/s LVOT Peak Gradient 3.7 mmHg LVOT Velocity Time Integral 17.5 cm LVOT Stroke Volume 54.1 cm??? LVOT Stroke Volume Index 30.8 ml/m??? LVOT Cardiac Index 2023.9 cm???/min???m??? AV Area Cont Eq vti 2.4 cm??? AV Area Cont Eq pk 3.2 cm??? Mitral E Point Velocity 68.3 cm/s Mitral A Point Velocity 106.6 cm/s Mitral E to A Ratio 0.6 MV Deceleration Time 206.2 ms LV E' Lateral Velocity 5.2 cm/s Mitral E to LV E' Lateral Ratio 13.2 LV E' Septal Velocity 4.4 cm/s Mitral E to LV E' Septal Ratio 15.5 TR Peak Velocity 237.0 cm/s TR Peak Gradient 22.5 mmHg Right Atrial Pressure 3.0 mmHg Pulmonary Artery Systolic Pressu 25.5 mmHg Right Ventricular Systolic Press 25.5 mmHg FINDINGS Left Ventricle Moderately increased septal wall thickness. Mildly increased posterior wall thickness. Left ventricular cavity size normal. Left ventricle wall motion is normal there is mild to moderate concentric LVH. No segmental wall motion abnormality ejection fraction is about 55-60%. Right Ventricle Normal right ventricular size. Right Atrium Normal right atrial size. Suboptimal bubble study because of poor views cannot comment if there is a shunt are not Left Atrium Normal left atrial size. Mitral Valve Structurally normal mitral valve. Trace mitral regurgitation. Aortic Valve Trileaflet aortic valve. [id number] aortic regurgitation. Tricuspid Valve Structurally normal tricuspid valve. Mild tricuspid regurgitation. Pulmonic Valve Pulmonic valve not well visualized. Mild pulmonic regurgitation. Pericardium Minimal pericardial effusion (normal variant). Aorta Moderate aortic dilatation at the level of the sinuses of valsalva (root). Mildly dilated proximal ascending aorta (tube). CONCLUSIONS Normal LV size and systolic function. Suboptimal bubble study cannot comment if there is a shunt. Mild mitral and tricuspid regurgitation. Mild to moderate aortic regurgitation. Minimal pericardial effusion. No pulmonary hypertension Previewed by: Dr. Suresh Martinez MD (Electronically Signed) Final Date: 09 August 2023 09:45
== END | disposition home or self-care (01) ==
LOC: RADECHMAIN 08:11
PROVIDERS: ATTEND Family Medicine
DX: I08.3 Combined rheumatic disorders of mitral, aortic and tricuspid valves (principal); R01.1 Cardiac murmur, unspecified; I31.39 Other pericardial effusion (noninflammatory)
CPT/HCPCS: 93306

== ENCOUNTER → 2023-11-26 | Outpatient (CLI) | payer OTHER ==
--- NOTE | 2023-11-27 12:30 | CT ---
EXAMINATION TYPE: CT chest abdomen w con DATE OF EXAM: 11/26/2023 COMPARISON: PET CT fusion 12/01/2022, CT chest 10/17/2022, CT abdomen 10/05/2022. HISTORY: lung nodule, spot on kidney, evaluate for aneurysm CT DLP: 685.30 mGycm CONTRAST: CT scan of the chest, abdomen is performed without Oral Contrast and with IV Contrast, patient inject ed with 100 mL of Isovue 300. CT Chest: LUNGS: The lungs are clear and free of infiltrate or atelectasis. 7 mm pulmonary nodule right lower l obe near the diaphragm seen on image 48 is essentially unchanged. No hypermetabolic activity seen on prior PET/CT. No pleural effusion or CT evidence of interstitial lung disease. MEDIASTINUM: Thoracic aorta is of normal caliber. The heart is not enlarged. No evidence for media stinal mass or adenopathy. HILAR STRUCTURES: No evidence for mass. No hilar adenopathy is appreciated. OTHER: No significant abnormality. CONTRAST CT ABDOMEN FINDINGS: LIVER/GB: The gallbladder is surgically absent. No space occupying hepatic lesion. Biliary tree is of normal caliber. PANCREAS: No inflammation. No distinct mass. SPLEEN: No splenic enlargement. No lesion seen. ADRENALS: No nodule. No thickening. KIDNEYS/BLADDER: No hydronephrosis. No nephrolithiasis. No disctinct renal mass. BOWEL: Normal appendix. Normal bowel caliber. No inflammation. LYMPH NODES: No greater than 1cm abdominal or pelvic lymph nodes are appreciated. AORTA: No significant abnormality. OSSEOUS STRUCTURES: No significant abnormality is seen. OTHER: No significant additional abnormality is seen. IMPRESSION: 1. Stable right lower lobe pulmonary nodule. 2. No evidence for abdominal aortic aneurysm. 3. No renal lesions seen. Defect left mid kidney may reflect prior biopsy change or prior insult.
--- NOTE | 2023-11-27 14:18 | MM ---
Reason for Exam: Screening (asymptomatic). Last mammogram was performed 1 year(s) and 1 month(s) ago. Patient History: Menarche at age 18. First Full-Term at age 20. Left ovary removed at age 45. Right ovary removed at age 24. Hysterectomy at age 24. 04/27/2011, Benign Ultrasound-Guided Core Biopsy on the right side. 2003, Excisional Biopsy on the Right side. 2001, Excisional Biopsy on the Right side. 1998, Excisional Biopsy on the Right side. Benign Excisional Biopsy. Maternal grandmother had breast cancer. Risk Values: Farida 5 year model risk: 1.6%. NCI Lifetime model risk: 9.3%. Prior Study Comparison: 06/14/2020 Right Diagnostic Mammogram, [facility]. 06/06/2021 Bilateral Screening Mammogram, [facility]. 10/05/2022 Bilateral MG diagnostic mammo w CAD [facility], [facility]. Tissue Density: The breasts are heterogeneously dense, which may obscure small masses. Findings: Analyzed By CAD. There is no suspicious group of microcalcifications or new suspicious mass in either breast. Overall Assessment: Benign, BI-RAD 2 Management: Screening Mammogram of both breasts in 1 year. . Patient should continue monthly self-breast exams. A clinical breast exam by your physician is recommended on an annual basis. This exam should not preclude additional follow-up of suspicious palpable abnormalities. Note on Farida scores and lifetime risk: 1. A Farida score greater than 3% is considered moderate risk. If this is the case, consider specialist referral to assess eligibility for a risk reducing agent. 2. If overall lifetime risk for the development of breast cancer is 20% or higher, the patient may qualify for future screening with alternating mammogram and breast MRI. Electronically signed and approved by: Tom Khoury M.D. Radiologis
== END | disposition home or self-care (01) ==
LOC: RADMAMWWP 07:27
PROVIDERS: ATTEND Family Medicine
DX: Z12.31 Encounter for screening mammogram for malignant neoplasm of breast (principal); R91.8 Other nonspecific abnormal finding of lung field; I71.21 Aneurysm of the ascending aorta, without rupture; R91.1 Solitary pulmonary nodule; Z80.3 Family history of malignant neoplasm of breast
CPT/HCPCS: 77067; 77063; 71260; 74160; Q9967

== ENCOUNTER 2024-09-30 14:50 | Observation (INO) | payer OTHER ==
--- NOTE | 2024-09-30 15:22 | ED ---
General Adult HPI - General Chief complaint: Shortness of Breath Stated complaint: PRINCE, vomiting Time Seen by Provider: 09/30/24 15:08 Source: patient, RN notes reviewed Mode of arrival: ambulatory Limitations: no limitations - History of Present Illness Initial comments: Patient is a 59-year-old female present to the emergency department with concerns with difficulty breathing. Patient started with emesis around 1230. Patient still has nausea and dry heaves. Patient then became short of breath and route to the hospital. Patient also has some chest discomfort and neck and back discomfort. Patient does have concern about recent diagnosis of aortic aneurysm at 4.6 cm. Patient is scheduled to have reimaging in April. Patient has seen cardiology and specialist for this. - Related Data Home Medications Medication Instructions Recorded Confirmed Aspirin 81 mg PO DAILY 05/16/21 09/30/24 Multivitamins, Thera [Multivitamin 1 tab PO Q48H 11/09/22 09/30/24 (formulary)] polyethylene glycoL 3350 [Miralax] 17 gm PO DAILY 11/09/22 09/30/24 Loratadine [Claritin] 10 mg PO DAILY 09/30/24 09/30/24 Vitamin C (Unknown Dose) 1 tab PO DAILY 09/30/24 09/30/24 Vitamin D3 (Unknown Dose) 1 cap PO DAILY 09/30/24 09/30/24 Wheat Germ Oil (Unknown Dose) 1 cap PO DAILY 09/30/24 09/30/24 Allergies Allergy/AdvReac Type Severity Reaction Status Date / Time codeine Allergy Rash/Hives Verified 09/30/24 16:07 tape Allergy Severe Swelling Uncoded 09/30/24 16:07 Review of Systems ROS Statement: Those systems with pertinent positive or pertinent negative responses have been documented in the HPI. ROS Other: All systems not noted in ROS Statement are negative. Constitutional: Denies: fever Eyes: Denies: eye pain ENT: Denies: ear pain Respiratory: Reports: as per HPI, dyspnea. Denies: cough Cardiovascular: Reports: as per HPI, chest pain Endocrine: Denies: fatigue Gastrointestinal: Reports: nausea, vomiting. Denies: abdominal pain Musculoskeletal: Reports: back pain Past Medical History Past Medical History: Myocardial Infarction ([place]) Additional Past Medical History / Comment(s): age 35 yrs, "leaky valve" Last Myocardial Infarction Date:: 1999 History of Any Multi-Drug Resistant Organisms: None Reported Past Surgical History: Adenoidectomy, Appendectomy, Breast Surgery, Section, Cholecystectomy, Heart Catheterization, Hernia Repair, Hysterectomy, Tonsillectomy Additional Past Surgical History / Comment(s): RT BREAST BX X 7, COLONOSCOPY, BRONCHOSCOPY, hernia repair x2, laparoscopic lysis of adhesions, egd/colonsocopy Past Anesthesia/Blood Transfusion Reactions: Previous Problems w/ Anesthesia, Motion Sickness, Postoperative Nausea & Vomiting (PONV) Additional Past Anesthesia/Blood Transfusion Reaction / Comment(s): HAS HARD TIME WAKING UP FROM ANESTHESIA. GETS SEVERE PONV WITH MINIMAL ANESTHESIA Past Psychological History: No Psychological Hx Reported Smoking Status: Never smoker Past Alcohol Use History: None Reported Past Drug Use History: None Reported - Past Family History Mother Family Medical History: Cancer, Coronary Artery Disease (CAD) Father Family Medical History: Blood Disorder, Coronary Artery Disease (CAD) Additional Family Medical History / Comment(s): HAS CLOTTING DISORDER General Exam Limitations: no limitations General appearance: alert, anxious Head exam: Present: normocephalic Eye exam: Present: normal appearance Neck exam: Present: normal inspection Respiratory exam: Present: normal lung sounds bilaterally. Absent: chest wall tenderness Cardiovascular Exam: Present: normal rhythm, tachycardia, normal heart sounds Expanded Peripheral pulses: 2+: Radial (R), Radial (L), Posterior Tibialis (R), Posterior Tibialis (L) GI/Abdominal exam: Present: soft. Absent: tenderness Extremities exam: Present: normal inspection. Absent: pedal edema, calf tenderness Neurological exam: Present: alert Psychiatric exam: Present: anxious Skin exam: Present: normal color Course Vital Signs 09/30/24 09/30/24 14:56 15:18 Temperature 97.6 F Pulse Rate 153 H 138 H Respiratory 36 H 32 H Rate Blood Pressure 131/72 138/80 O2 Sat by Pulse 99 98 Oximetry EKG Findings - EKG Results: EKG: interpreted by ERMD (Left axis. Nonspecific ST-T), sinus rhythm, normal QRS EKG shows: tachycardia Medical Decision Making - Medical Decision Making Was pt. sent in by a medical professional or institution (, PA, AUTO BODY MECHANIC, urgent care, hospital, or fdc...) When possible be specific @ -No Did you speak to anyone other than the patient for history (EMS, parent, family, police, friend...)? What history was obtained from this source @ -No Did you review nursing and triage notes (agree or disagree)? Why? @ -I reviewed and agree with nursing and triage notes Were old charts reviewed (outside hosp., previous admission, EMS record, old EKG, old radiological studies, urgent care reports/EKG's, fdc records)? Report findings @ -No old charts were reviewed Differential Diagnosis (chest pain, altered mental status, abdominal pain women, abdominal pain men, vaginal bleeding, weakness, fever, dyspnea, syncope, headache, dizziness, GI bleed, back pain, seizure, CVA, palpatations, mental health, musculoskeletal)? @ -Differential Chest Pain: Stable Angina, Unstable Angina, STEMI, NSTEMI Aortic Dissection, Pneumothorax, Musculoskeletal, Esophageal Spasm GERD, Cholecystitis, Pancreatitis, Zoster, this is not meant to be an all-inclusive list. EKG interpreted by me (3pts min.). @ -As above X-rays interpreted by me (1pt min.). @ -Chest x-ray questions infiltrates CT interpreted by me (1pt min.). @ -CT scan of the chest unremarkable. No evidence of infiltrates in the lung lan U/S interpreted by me (1pt. min.). @ -None done What testing was considered but not performed or refused? (CT, X-rays, U/S, labs)? Why? @ -None What meds were considered but not given or refused? Why? @ -Considered antibiotics however CT scan is more accurate and there is no sign of infiltrates on that. In addition no symptoms of infection. Did you discuss the management of the patient with other professionals (professionals i.e. , PA, AUTO BODY MECHANIC, lab, RT, psych nurse, rn social services, commodity analyst, teacher, soil science technical officer, caseworker)? Give summary @ -Case was discussed with Dr. Hidalgo who will admit covering Dr. Santacruz Was smoking cessation discussed for >3mins.? @ -No Was critical care preformed (if so, how long)? @ -No Were there social determinants of health that impacted care today? How? (Homelessness, low income, unemployed, alcoholism, drug addiction, transportation, low edu. Level, literacy, decrease access to med. care, prison, rehab)? @ -No Was there de-escalation of care discussed even if they declined (Discuss DNR or withdrawal of care, Hospice)? DNR status @ -No What co-morbidities impacted this encounter? (DM, HTN, Smoking, COPD, CAD, Cancer, CVA, ARF, Chemo, Hep., AIDS, mental health diagnosis, sleep apnea, morbid obesity)? @ -Patient has reported history of aorta aneurysm Was patient admitted / discharged? Hospital course, mention meds given and route, prescriptions, significant lab abnormalities, going to OR and other pertinent info. @ -Patient presents with nausea vomiting, dyspnea and chest discomfort. Patient reevaluated twice and is feeling much better. Patient will be admitted with cardiac consult. Patient updated on results and plan. Admission orders written. Undiagnosed new problem with uncertain prognosis? @ -No Drug Therapy requiring intensive monitoring for toxicity (Heparin, Nitro, Insulin, Cardizem)? @ -No Were any procedures done? @ -No Diagnosis/symptom? @ -Chest pain Acute, or Chronic, or Acute on Chronic? @ -Acute Uncomplicated (without systemic symptoms) or Complicated (systemic symptoms)? @ -Default Side effects of treatment? @ -No Exacerbation, Progression, or Severe Exacerbation? @ -No Poses a threat to life or bodily function? How? (Chest pain, [place], [place], pneumonia, PE, COPD, DKA, ARF, appy, cholecystitis, CVA, Diverticulitis, Homicidal, Suicidal, threat to staff... and all critical care pts) @ -Threat to cardiac function - Lab Data Result diagrams: 09/30/24 15:20 09/30/24 15:20 Lab Results 09/30/24 09/30/24 09/30/24 Range/Units 15:20 15:20 15:20 WBC 9.1 (3.8-10.6) k/uL RBC 4.88 (3.80-5.40) m/uL Hgb 15.2 (11.4-16.0) gm/dL Hct 44.2 (34.0-46.0) % MCV 90.6 (80.0-100.0) fL MCH 31.2 (25.0-35.0) pg MCHC 34.5 (31.0-37.0) g/dL RDW 12.9 (11.5-15.5) % Plt Count 287 (150-450) k/uL MPV 7.6 Neutrophils % 68 % Lymphocytes % 26 % Monocytes % 4 % Eosinophils % 1 % Basophils % 0 % Neutrophils # 6.2 (1.3-7.7) k/uL Lymphocytes # 2.3 (1.0-4.8) k/uL Monocytes # 0.3 (0-1.0) k/uL Eosinophils # 0.1 (0-0.7) k/uL Basophils # 0.0 (0-0.2) k/uL PT 10.8 (10.0-12.5) sec INR 1.0 (<1.2) APTT 23.2 (22.0-30.0) sec Sodium 140 (137-145) mmol/L Potassium 3.3 L (3.5-5.1) mmol/L Chloride 103 (98-107) mmol/L Carbon Dioxide 14 L (22-30) mmol/L Anion Gap 23 mmol/L BUN 10 (7-17) mg/dL Creatinine 0.94 (0.52-1.04) mg/dL Est GFR (CKD-EPI)AfAm 77 (>60 ml/min/1.73 sqM) Est GFR (CKD-EPI)NonAf 67 (>60 ml/min/1.73 sqM) Glucose 153 H (74-99) mg/dL Calcium 10.3 H (8.4-10.2) mg/dL Magnesium 1.9 (1.6-2.3) mg/dL Total Bilirubin 0.6 (0.2-1.3) mg/dL AST 28 (14-36) U/L ALT 29 (4-34) U/L Alkaline Phosphatase 108 (38-126) U/L Troponin I (0.000-0.034) ng/mL NT-Pro-B Natriuret Pep 133 pg/mL Total Protein 8.0 (6.3-8.2) g/dL Albumin 4.9 (3.5-5.0) g/dL Amylase 59 (30-110) U/L Lipase 85 (23-300) U/L 09/30/ Range/Units 15:20 WBC (3.8-10.6) k/uL RBC (3.80-5.40) m/uL Hgb (11.4-16.0) gm/dL Hct (34.0-46.0) % MCV (80.0-100.0) fL MCH (25.0-35.0) pg MCHC (31.0-37.0) g/dL RDW (11.5-15.5) % Plt Count (150-450) k/uL MPV Neutrophils % % Lymphocytes % % Monocytes % % Eosinophils % % Basophils % % Neutrophils # (1.3-7.7) k/uL Lymphocytes # (1.0-4.8) k/uL Monocytes # (0-1.0) k/uL Eosinophils # (0-0.7) k/uL Basophils # (0-0.2) k/uL PT (10.0-12.5) sec INR (<1.2) APTT (22.0-30.0) sec Sodium (137-145) mmol/L Potassium (3.5-5.1) mmol/L Chloride (98-107) mmol/L Carbon Dioxide (22-30) mmol/L Anion Gap mmol/L BUN (7-17) mg/dL Creatinine (0.52-1.04) mg/dL Est GFR (CKD-EPI)AfAm (>60 ml/min/1.73 sqM) Est GFR (CKD-EPI)NonAf (>60 ml/min/1.73 sqM) Glucose (74-99) mg/dL Calcium (8.4-10.2) mg/dL Magnesium (1.6-2.3) mg/dL Total Bilirubin (0.2-1.3) mg/dL AST (14-36) U/L ALT (4-34) U/L Alkaline Phosphatase (38-126) U/L Troponin I <0.012 (0.000-0.034) ng/mL NT-Pro-B Natriuret Pep pg/mL Total Protein (6.3-8.2) g/dL Albumin (3.5-5.0) g/dL Amylase (30-110) U/L Lipase (23-300) U/L Disposition Clinical Impression: Chest pain Disposition: ADMITTED IP TO THIS [facility] Is patient prescribed a controlled substance at d/c from ED?: No Referrals: Oc Santacruz DO [Primary Care Provider] - 1-2 days Time of Disposition: 17:13
[2024-09-30] MEDS: SODIUM CHLORIDE 0.9% 1,000 ML IV STA (15:25)
[2024-09-30] MEDS: ASPIRIN 81 MG PO STA (15:26)
[2024-09-30] MEDS: ONDANSETRON 4 MG/2 ML VIAL IVP STA ×2 (15:26→16:08)
[2024-09-30] MEDS: MORPHINE SULFATE 4 MG/ML SYRINGE IV STA (15:28)
[2024-09-30 15:32] LABS: Basophils % (A) 0 %; Eosinophils # (A) 0.1 k/uL (0-0.7); Eosinophils % (A) 1 %; HCT 44.2 % (34.0-46.0); HGB 15.2 gm/dL (11.4-16.0); Lymphocytes # (A) 2.3 k/uL (1.0-4.8); Lymphocytes % (A) 26 %; MCH 31.2 pg (25.0-35.0); MCHC 34.5 g/dL (31.0-37.0); MCV 90.6 fL (80.0-100.0); Mean Platelet Volume 7.6; Monocytes # (A) 0.3 k/uL (0-1.0); Monocytes % (A) 4 %; Neutrophils # (A) 6.2 k/uL (1.3-7.7); Neutrophils % (A) 68 %; Platelet Count 287 k/uL (150-450); RBC 4.88 m/uL (3.80-5.40); RDW 12.9 % (11.5-15.5); WBC 9.1 k/uL (3.8-10.6)
[2024-09-30 15:39] LABS: Partial Thromboplastin Time 23.2 sec (22.0-30.0); Prothrombin Time 10.8 sec (10.0-12.5)
[2024-09-30 15:49] LABS: AST 28 U/L (14-36); African American GFR (CKD) 77 (>60 ml/min/1.73 sqM); Albumin 4.9 g/dL (3.5-5.0); Alkaline Phosphatase 108 U/L (38-126); Amylase 59 U/L (30-110); Anion Gap 23 mmol/L; Blood Urea Nitrogen 10 mg/dL (7-17); Calcium 10.3 mg/dL (8.4-10.2); Carbon Dioxide 14 mmol/L (22-30); Chloride 103 mmol/L (98-107); Glucose 153 mg/dL (74-99); Lipase 85 U/L (23-300); Magnesium 1.9 mg/dL (1.6-2.3); Non-African American GFR(CKD) 67 (>60 ml/min/1.73 sqM); Potassium 3.3 mmol/L (3.5-5.1); Sodium 140 mmol/L (137-145); Total Bilirubin 0.6 mg/dL (0.2-1.3)
[2024-09-30 15:56] LABS: ALT 29 U/L (4-34)
[2024-09-30] MEDS: FAMOTIDINE 20 MG/2 ML VIAL IV STA (16:08)
[2024-09-30 16:12] LABS: NT-Pro-B-Type Natriuretic Pept 133 pg/mL
--- NOTE | 2024-09-30 16:25 | XR ---
EXAMINATION TYPE: XR chest 1V portable DATE OF EXAM: 09/30/2024 4:21 PM COMPARISON: None. CLINICAL INDICATION: Female, 59 years old with history of chest pain, TECHNIQUE: XR chest 1V portable view(s) obtained. FINDINGS: The heart size is normal. The pulmonary vasculature is normal. Right lower lobe infiltrate is present. Correlate for pneumonia. Some subsegmental atelectasis or pn eumonia may be at the left base IMPRESSION: 1. Bibasilar infiltrates more consolidated at the right base. Correlate for pneumonia. Subsegmental a telectasis could be considered. [facility], , 09/30/2024 4:23 PM
--- NOTE | 2024-09-30 16:32 | CT ---
CTA chest and abdomen. HISTORY: Chest pain COMPARISON: CT chest and abdomen dated 11/26/2023. TECHNIQUE: Multiple axial images are obtained through the chest and abdomen following the uneventful menstruation nonionic IV contrast. Exam was performed according to department CTA protocol. 3-D postp rocessing was performed. MIPS images were generated and reviewed. FINDINGS: The thoracic and abdominal aorta are normal without aneurysm, dissection or intraluminal thrombus. Th e mesenteric and renal arteries are widely patent. The iliac arteries are normal without aneurysm. There is a stable 10 mm nodule in the right lower lobe small central calcification. There is no airspace consolidation or abnormal interstitial density. There is no pleural effusion or pneumothorax. There is no adenopathy within the chest. There is surgical absence of the gallbladder. There is no focal mass or organomegaly involving liver, pancreas, or spleen. There is a stable 2.3 cm nodule of the right adrenal gland which most likely represents benign adenoma. There is no solid renal mass or hydronephrosis. There is no retroperitoneal adenopathy. The bowel loops are normal in caliber and there is no dilatation or obstruction. No inflammatory nielson ges are identified in the bowel wall and mesentery. No free intraperitoneal air or fluid. No pelvic mass or adenopathy. There are surgical absence of the uterus. There are no focal osseous lesions. IMPRESSION: 1. No aneurysm, dissection, intraluminal filling defect or stenosis within the thoracic or abdominal aorta. 2. Stable 10 mm benign right lower lobe pulmonary nodule. 3. Stable 2.3 cm right adrenal adenoma. 4. No acute changes within the chest or abdomen. [facility], , 09/30/2024 4:30 PM
[2024-09-30] MEDS ORDERED: NITROGLYCERIN SL TABS 0.4 MG TAB SUBLINGUAL PRN (17:13)
[2024-09-30] MEDS: NITROGLYCERIN OINT 1 INCH/GM PACKET TOPICAL SCH (18:16)
[2024-09-30] MEDS: ACETAMINOPHEN IV (For NPO) 1,000 MG in EMPTY BAG 1 BAG IVPB ONE (18:44)
[2024-10-01] MEDS: ONDANSETRON ODT 4 MG TAB PO PRN (01:29)
[2024-10-01] MEDS: ACETAMINOPHEN TAB 325 MG TAB PO PRN (01:29)
[2024-10-01 07:46] VITALS: RESP 17
[2024-10-01] MEDS: ASPIRIN 81 MG PO SCH (08:50)
[2024-10-01] MEDS: LOSARTAN 25 MG TAB PO SCH (08:51)
[2024-10-01] MEDS: LORATADINE 10 MG TAB PO SCH (08:51)
[2024-10-01] MEDS: polyethylene glycoL 3350 17 GM POWD.PACK PO SCH (08:52)
[2024-10-01] MEDS ORDERED: WHEAT GERM OIL PO SCH (09:00)
[2024-10-01] MEDS ORDERED: ASPIRIN 325 MG TAB PO SCH (09:00)
[2024-10-01] MEDS ORDERED: LOSARTAN 25 MG TAB PO SCH (09:00)
[2024-10-01] MEDS ORDERED: VITAMIN C PO SCH (09:00)
[2024-10-01] MEDS ORDERED: VITAMIN D3 PO SCH (09:00)
[2024-10-01 09:32] LABS: Chol/HDL Ratio 4.84 Ratio; LDL Cholesterol,Calculated 177.5 mg/dL (0.0-131.0)
[2024-10-01 10:02] LABS: Influenza A Not Detected (Not Detectd); Influenza B Not Detected (Not Detectd); RSV Not Detected (Not Detectd)
--- NOTE | 2024-10-01 10:24 | P.CRDCN ---
History of Present Illness History of present illness: HISTORY OF PRESENT ILLNESS: This is a 59-year-old female with a past medical history significant for aortic regurgitation and ascending aortic aneurysm. Patient follows in the office with Dr. Pineda. We have been asked to see the patient in consultation for chest pain. Patient examined at the bedside. Patient states yesterday she began to have nausea and dry heaves. She reports she then started to have some shortness of breath along with back pain and chest pain. She has a known history of an ascending aortic aneurysm and is concerned that it may be related to that so she came to the ER for further evaluation. The patient denies any further episodes of chest pain or shortness of breath. She still had some nausea and dry heaves overnight. Vital signs are stable. The patient has recently established with a physician at [facility] for her ascending aortic aneurysm. She states she is scheduled to undergo repeat imaging in October. DIAGNOSTICS: - EKG reveals sinus tachycardia with no signs of acute ischemia. - Chest xray bibasilar infiltrates more consolidated at the right base. Correlate for pneumonia. Subsegmental atelectasis could be considered. -CTA chest and abdomen: No aneurysm, dissection, intraluminal filling defect or stenosis within the thoracic or abdominal aorta. Stable 10 mm benign right lower lobe pulmonary nodule. Stable 2.3 cm right adrenal adenoma. No acute changes within the chest or abdomen - Laboratory data: WBC 9.1. Hemoglobin 15.2. Platelet count 2 87. Sodium 140. Potassium 3.3. BUN 10. Creatinine 0.94. Troponin negative x 3. Cholesterol 256. LDL 177. LDL 52.9. 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 -Patient underwent stress testing in September 2023 which revealed fair exercise tolerance, no symptoms typical of angina, no dysrhythmias were noted. Nondiagnostic electrocardiographic stress test secondary to baseline EKG abnormalities REVIEW OF SYSTEMS: At the time of my exam: CONSTITUTIONAL: Denies fever or chills. HEENT: Denies blurred vision, vision changes, or eye pain. Denies hemoptysis CARDIOVASCULAR: Denies chest pain. Denies orthopnea. Denies PND. Denies palpitations RESPIRATORY: Denies shortness of breath. GASTROINTESTINAL: Denies abdominal pain. Denies nausea or vomiting. HEMATOLOGIC: Denies bleeding disorders. GENITOURINARY: Denies any blood in urine. SKIN: Denies pruitis. Denies rash. PHYSICAL EXAM: VITAL SIGNS: Reviewed. GENERAL: Well-developed in no acute distress. HEENT: Head is normocephalic. Pupils are equal, round. Sclerae anicteric. Mucous membranes of the mouth are moist. Neck supple. No JVD or thyromegaly LUNGS: Respirations even and unlabored. Lungs essentially clear to auscultation bilaterally. HEART: Regular rate and rhythm. S1 and S2 heard. Diastolic murmur noted. ABDOMEN: Soft. Nondistended. Nontender. EXTREMITIES: Normal range of motion. No clubbing or cyanosis. Peripheral pulses intact. No lower extremity edema NEUROLOGIC: Awake and alert. Oriented x 3. 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, per BRUCE 09/09/2024 Valvular heart disease including moderate to severe aortic regurgitation, mild mitral regurgitation, mild tricuspid regurgitation Hyperlipidemia, total cholesterol 256, LDL 177 PLAN: An acute coronary event has been ruled out No need to repeat echocardiogram as this was performed in the office in August 2024 Add atorvastatin 40 mg at night due to elevated lipid panel Add losartan 12.5 mg daily Continue home dose of aspirin 81 mg daily Check patient for COVID, RSV, and influenza Patient is currently stable for discharge from a cardiac perspective Patient to follow-up postdischarge with Dr. Pineda and also with her physician at [facility] Nurse practitioner note has been reviewed by physician. Signing provider agrees with the documented findings, assessment, and plan of care documented by ICT HELP DESK OFFICER as a scribe. Past Medical History Past Medical History: Myocardial Infarction ([place]) Additional Past Medical History / Comment(s): age 35 yrs, "leaky valve" Last Myocardial Infarction Date:: 1999 History of Any Multi-Drug Resistant Organisms: None Reported Past Surgical History: Adenoidectomy, Appendectomy, Breast Surgery, Section, Cholecystectomy, Heart Catheterization, Hernia Repair, Hysterectomy, Tonsillectomy Additional Past Surgical History / Comment(s): RT BREAST BX X 7, COLONOSCOPY, BRONCHOSCOPY, hernia repair x2, laparoscopic lysis of adhesions, egd/colonsocopy Past Anesthesia/Blood Transfusion Reactions: Previous Problems w/ Anesthesia, Motion Sickness, Postoperative Nausea & Vomiting (PONV) Additional Past Anesthesia/Blood Transfusion Reaction / Comment(s): HAS HARD TIME WAKING UP FROM ANESTHESIA. GETS SEVERE PONV WITH MINIMAL ANESTHESIA Past Psychological History: No Psychological Hx Reported Smoking Status: Never smoker Past Alcohol Use History: None Reported Past Drug Use History: None Reported - Past Family History Mother Family Medical History: Cancer, Coronary Artery Disease (CAD) Father Family Medical History: Blood Disorder, Coronary Artery Disease (CAD) Additional Family Medical History / Comment(s): HAS CLOTTING DISORDER Medications and Allergies Home Medications Medication Instructions Recorded Confirmed Type Aspirin 81 mg PO DAILY 05/16/21 09/30/24 History Multivitamins, Thera [Multivitamin 1 tab PO Q48H 11/09/22 09/30/24 History (formulary)] polyethylene glycoL 3350 [Miralax] 17 gm PO DAILY 11/09/22 09/30/24 History Loratadine [Claritin] 10 mg PO DAILY 09/30/24 09/30/24 History Vitamin C (Unknown Dose) 1 tab PO DAILY 09/30/24 09/30/24 History Vitamin D3 (Unknown Dose) 1 cap PO DAILY 09/30/24 09/30/24 History Wheat Germ Oil (Unknown Dose) 1 cap PO DAILY 09/30/24 09/30/24 History Allergies Allergy/AdvReac Type Severity Reaction Status Date / Time codeine Allergy Rash/Hives Verified 09/30/24 16:07 tape Allergy Severe Swelling Uncoded 09/30/24 16:07 Physical Exam Vitals: Vital Signs Temp Pulse Pulse Resp BP BP Pulse Ox 10/01/24 07:00 97.9 F 93 17 137/72 99 10/01/24 01:01 98.6 F 89 19 135/76 96 09/30/24 21:29 97.7 F 91 18 99/64 96 09/30/24 21:26 98.3 F 90 18 126/84 99 09/30/24 19:25 98.4 F 98 18 115/79 97 09/30/24 19:01 98.2 F 98 18 125/66 98 09/30/24 15:18 138 H 32 H 138/80 98 09/30/24 14:56 97.6 F 153 H 36 H 131/72 99 Intake and Output 09/30/24 10/01/24 10/01/24 22:59 06:59 14:59 Other: Voiding Method Toilet Toilet # Voids 1 1 Weight 58.513 kg Results 09/30/24 15:20 09/30/24 15:20 Cardiac Enzymes 09/30/24 09/30/24 09/30/24 Range/Units 15:20 15:20 18:31 AST 28 (14-36) U/L Troponin I <0.012 0.017 (0.000-0.034) ng/mL 09/30/24 Range/Units 22:02 AST (14-36) U/L Troponin I 0.017 (0.000-0.034) ng/mL Coagulation 09/30/24 Range/Units 15:20 PT 10.8 (10.0-12.5) sec APTT 23.2 (22.0-30.0) sec CBC 09/30/24 Range/Units 15:20 WBC 9.1 (3.8-10.6) k/uL RBC 4.88 (3.80-5.40) m/uL Hgb 15.2 (11.4-16.0) gm/dL Hct 44.2 (34.0-46.0) % Plt Count 287 (150-450) k/uL Comprehensive Metabolic Panel 09/30/24 Range/Units 15:20 Sodium 140 (137-145) mmol/L Potassium 3.3 L (3.5-5.1) mmol/L Chloride 103 (98-107) mmol/L Carbon Dioxide 14 L (22-30) mmol/L BUN 10 (7-17) mg/dL Creatinine 0.94 (0.52-1.04) mg/dL Glucose 153 H (74-99) mg/dL Calcium 10.3 H (8.4-10.2) mg/dL AST 28 (14-36) U/L ALT 29 (4-34) U/L Alkaline Phosphatase 108 (38-126) U/L Total Protein 8.0 (6.3-8.2) g/dL Albumin 4.9 (3.5-5.0) g/dL Current Medications Generic Name Dose Route Start Last Admin Trade Name Freq PRN Reason Stop Dose Admin Acetaminophen 650 mg 10/01/24 01:09 10/01/24 01:29 Acetaminophen Tab 325 Mg Tab PO 650 mg Q6HR PRN Administration Fever and/ or Pain Aspirin 325 mg 10/01/24 09:00 Aspirin 325 Mg Tab PO DAILY FLORENTIN Loratadine 10 mg 10/01/24 09:00 Loratadine 10 Mg Tab PO DAILY FLORENTIN Multivitamins 1 each 10/02/24 09:00 Multivitamins, Thera 1 Each Tab PO Q48H FLORENTIN Nitroglycerin 0.4 mg 09/30/24 17:13 Nitroglycerin Sl Tabs 0.4 Mg Tab SUBLINGUAL Q5M PRN Chest Pain Nitroglycerin 1 inch 09/30/24 18:00 10/01/24 05:59 Nitroglycerin Oint 1 Inch/Gm Packet TOPICAL Not Given Q6HR FLORENTIN Ondansetron HCl 4 mg 10/01/24 01:09 10/01/24 01:29 Ondansetron Odt 4 Mg Tab PO 4 mg Q8HR PRN Administration nausea Polyethylene Glycol 17 gm 10/01/24 09:00 Polyethylene Glycol 3350 17 Gm Powd.Pack PO DAILY FLORENTIN Intake and Output 09/30/24 10/01/24 10/01/24 22:59 06:59 14:59 Other: Voiding Method Toilet Toilet # Voids 1 1 Weight 58.513 kg 09/30/24 15:20 09/30/24 15:20
[2024-10-01] MEDS: POTASSIUM CHLORIDE ER 20 MEQ TAB.ER PO STA (11:21)
[2024-10-01 14:21] VITALS: BP 122/69; PULSE 71; TEMP 98.2
--- NOTE | 2024-10-01 14:29 | P.HPIM ---
History of Present Illness H&P Date: 10/01/24 This is a pleasant 59-year-old female with medical history significant for myocardial infarction, leaky valve, heart catheterization, multiple surgeries including appendectomy cholecystectomy. Patient presents to the the hospital with complaints of fever chills nausea vomiting as well as a 1 day history of chest pain and back pain. Patient states that the pain came out of nowhere while she was sitting had not done any strenuous activity states that the pain is not a burning-like sensation and not associated with food. Denies any shortness of breath, dizziness or lightheadedness she denies any syncopal episodes or diaphoresis. At the time of my evaluation the pain is currently gone. She was recently diagnosed with an aortic aneurysm per the patient. Following with Dr. Shirley in the office recently had a transesophageal echocardiogram completed on September 09 showing an aneurysm of the sinus of Valsalva with dilated aortic sinuses measuring 4.4 cm. Patient is scheduled to undergo a cardiac CT at [facility] on November 03 and has established with Dr. Kee out of [facility] for cardiothoracic surgery. Patient CBC is completely unremarkable, sodium of 140, potassium 3.3, BUN of 10 creatinine 0.94, calcium of 10.3, troponin level is negative x 3. Her lipid panel reveals a triglyceride level of 128 cholesterol 256, LDL of 177 and HDL of 52. Patient's viral panel was negative for influenza RSV and COVID. REVIEW OF SYSTEMS: CONSTITUTIONAL: No fever, no malaise, no fatigue. HEENT: No recent visual problems or hearing problems. Denied any sore throat. CARDIOVASCULAR: No chest pain, orthopnea, PND, no palpitations, no syncope. PULMONARY: No shortness of breath, no cough, no hemoptysis. GASTROINTESTINAL: No diarrhea, no nausea, no vomiting, no abdominal pain. NEUROLOGICAL: No headaches, no weakness, no numbness. HEMATOLOGICAL: Denies any bleeding or petechiae. GENITOURINARY: Denies any burning micturition, frequency, or urgency. MUSCULOSKELETAL/RHEUMATOLOGICAL: Denies any joint pain, swelling, or any muscle pain. ENDOCRINE: Denies any polyuria or polydipsia. The rest of the 14-point review of systems is negative. PHYSICAL EXAMINATION: GENERAL: The patient is alert and oriented x3, not in any acute distress. Well developed, well nourished. HEENT: Pupils are round and equally reacting to light. EOMI. No scleral icterus. No conjunctival pallor. Normocephalic, atraumatic. No pharyngeal erythema. No thyromegaly. CARDIOVASCULAR: S1 and S2 present. No murmurs, rubs, or gallops. PULMONARY: Chest is clear to auscultation, no wheezing or crackles. ABDOMEN: Soft, nontender, nondistended, normoactive bowel sounds. No palpable organomegaly. MUSCULOSKELETAL: No joint swelling or deformity. EXTREMITIES: No cyanosis, clubbing, or pedal edema. NEUROLOGICAL: Gross neurological examination did not reveal any focal deficits. SKIN: No rashes. 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 Patient is completing outpatient follow up for this at [facility] GI prophylaxis NO Code Plan Patient has been evaluated by cardiology No plans for repeat echoardiogram at this time Patient has been started on atorvastatin 40 mg daily Patient has been started on 12.5 mg losartan daily Cleared from a cardiac standpoint Patient to continue supportive care Nausea and vomiting have resolved likely a viral etiology; procalcitonin level pending Replace potassium with 40 eq x 1. Discharge home and follow up with CT surgery Dr. Kee as prior arranged Follow up with Dr shirley in the office 1 to 2 weeks The impression and plan of care has been dictated by Siobhan Peterson Nurse Practitioner as directed. Dr. Josué MD I have performed a history and physical examination and medical decision making of this patient, discussed the same with the dictator, and agree with the dictators assessment and plan as written, documented as a scribe. Based on total visit time, I have performed more than 50% of this visit. Past Medical History Past Medical History: Myocardial Infarction ([place]) Additional Past Medical History / Comment(s): age 35 yrs, "leaky valve" Last Myocardial Infarction Date:: 1999 History of Any Multi-Drug Resistant Organisms: None Reported Past Surgical History: Adenoidectomy, Appendectomy, Breast Surgery, Section, Cholecystectomy, Heart Catheterization, Hernia Repair, Hysterectomy, Tonsillectomy Additional Past Surgical History / Comment(s): RT BREAST BX X 7, COLONOSCOPY, BRONCHOSCOPY, hernia repair x2, laparoscopic lysis of adhesions, egd/colonsocopy Past Anesthesia/Blood Transfusion Reactions: Previous Problems w/ Anesthesia, Motion Sickness, Postoperative Nausea & Vomiting (PONV) Additional Past Anesthesia/Blood Transfusion Reaction / Comment(s): HAS HARD TIME WAKING UP FROM ANESTHESIA. GETS SEVERE PONV WITH MINIMAL ANESTHESIA Past Psychological History: No Psychological Hx Reported Smoking Status: Never smoker Past Alcohol Use History: None Reported Past Drug Use History: None Reported - Past Family History Mother Family Medical History: Cancer, Coronary Artery Disease (CAD) Father Family Medical History: Blood Disorder, Coronary Artery Disease (CAD) Additional Family Medical History / Comment(s): HAS CLOTTING DISORDER Medications and Allergies Home Medications Medication Instructions Recorded Confirmed Type Aspirin 81 mg PO DAILY 05/16/21 09/30/24 History Multivitamins, Thera [Multivitamin 1 tab PO Q48H 11/09/22 09/30/24 History (formulary)] polyethylene glycoL 3350 [Miralax] 17 gm PO DAILY 11/09/22 09/30/24 History Loratadine [Claritin] 10 mg PO DAILY 09/30/24 09/30/24 History Vitamin C (Unknown Dose) 1 tab PO DAILY 09/30/24 09/30/24 History Vitamin D3 (Unknown Dose) 1 cap PO DAILY 09/30/24 09/30/24 History Wheat Germ Oil (Unknown Dose) 1 cap PO DAILY 09/30/24 09/30/24 History Atorvastatin [Lipitor] 40 mg PO HS #30 tab 10/01/24 Rx Losartan [Cozaar] 12.5 mg PO DAILY #30 tab 10/01/24 Rx Nitroglycerin Sl Tabs [Nitrostat] 0.4 mg SUBLINGUAL Q5M PRN #25 tab 10/01/24 Rx Allergies Allergy/AdvReac Type Severity Reaction Status Date / Time codeine Allergy Rash/Hives Verified 09/30/24 16:07 tape Allergy Severe Swelling Uncoded 09/30/24 16:07 Physical Exam Vitals: Vital Signs Temp Pulse Pulse Resp BP BP Pulse Ox 10/01/24 07:00 97.9 F 93 17 137/72 99 10/01/24 01:01 98.6 F 89 19 135/76 96 09/30/24 21:29 97.7 F 91 18 99/64 96 09/30/24 21:26 98.3 F 90 18 126/84 99 09/30/24 19:25 98.4 F 98 18 115/79 97 09/30/24 19:01 98.2 F 98 18 125/66 98 09/30/24 15:18 138 H 32 H 138/80 98 09/30/24 14:56 97.6 F 153 H 36 H 131/72 99 Intake and Output 09/30/24 10/01/24 10/01/24 22:59 06:59 14:59 Other: Voiding Method Toilet Toilet # Voids 1 1 Weight 58.513 kg Results CBC & Chem 7: 09/30/24 15:20 09/30/24 15:20 Labs: Abnormal Lab Results - Last 24 Hours (Table) 09/30/24 09/30/24 Range/Units 15:20 15:20 Potassium 3.3 L (3.5-5.1) mmol/L Carbon Dioxide 14 L (22-30) mmol/L Glucose 153 H (74-99) mg/dL Calcium 10.3 H (8.4-10.2) mg/dL Cholesterol 256.00 H (0.00-200.00) mg/dL LDL Cholesterol, Calc 177.5 H (0.0-131.0) mg/dL Thrombosis Risk Factor Assmnt - Choose All That Apply Each Factor Represents 1 point: Age 41-60 years Thrombosis Risk Factor Assessment Total Risk Factor Score: 1 Thrombosis Risk Factor Assessment Level: Low Risk Assessment and Plan Time with Patient: Less than 30
[2024-10-01] MEDS ORDERED: ATORVASTATIN 40 MG TAB PO SCH (21:00)
[2024-10-02] MEDS ORDERED: MULTIVITAMINS, THERA 1 EACH TAB PO SCH (09:00)
--- NOTE | 2024-10-03 07:14 | P.DS ---
Providers Date of admission: 09/30/24 17:14 Attending physician: Dom Spears MD Consults: 09/30/24 17:14 Consult Physician Urgent Consulting Provider: Javon Pineda Consult Reason/Comments: cp Do you want consulting provider notified?: Yes Primary care physician: Oc Santacruz [facility] Hospital Course: Final Diagnosis Chest pain, atypical ACS is ruled out Flulike symptoms viral etiology and patient to continue with supportive care Hypokalemia from the nausea vomiting DysLipidemia patient has been started on Lipitor Stable 10 mm benign right lower lobe pulmonary nodule known to the patient and she states that she follows with pulmonology on an outpatient basis Bilateral lower lobe infiltrate patient states is chronic for her 2.3 cm right adrenal adenoma noted on chest CT angiography 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 Patient is completing outpatient follow up for this at [facility] Discharge Disposition Patient stable for discharge home she has been started on atorvastatin 40 mg at bedtime secondary to abnormal lipid panel. Additionally she was started on losartan 12.5 mg daily. Patient will continue all her same medications. Patient is a follow-up with Dr. Pineda her primary mat cutter on October 03 at 1 PM. Advised patient to follow-up with her PCP Dr. Brunilda Santacruz in 1 to 2 days. Continue her follow-up with her cardiothoracic surgeon at [facility] Dr. Kee. Hospital Course This is a pleasant 59-year-old female with medical history significant for myocardial infarction, leaky valve, heart catheterization, multiple surgeries including appendectomy cholecystectomy. Patient presents to the the hospital with complaints of fever chills nausea vomiting as well as a 1 day history of chest pain and back pain. Patient states that the pain came out of nowhere while she was sitting had not done any strenuous activity states that the pain is not a burning-like sensation and not associated with food. Denies any shortness of breath, dizziness or lightheadedness she denies any syncopal episodes or diaphoresis. At the time of my evaluation the pain is currently gone. She was recently diagnosed with an aortic aneurysm per the patient. Following with Dr. Pineda in the office recently had a transesophageal echocardiogram completed on September 09 showing an aneurysm of the sinus of Valsa lva with dilated aortic sinuses measuring 4.4 cm. Patient is scheduled to undergo a cardiac CT at [facility] on November 03 and has established with Dr. Kee out of [facility] for cardiothoracic surgery. Patient CBC is completely unremarkable, sodium of 140, potassium 3.3, BUN of 10 creatinine 0.94, calcium of 10.3, troponin level is negative x 3. Her lipid panel reveals a triglyceride level of 128 cholesterol 256, LDL of 177 and HDL of 52. Patient's viral panel was negative for influenza RSV and COVID. Cardiology evaluated the patient acute coronary syndrome was ruled out no need to repeat echocardiogram as it was just performed in the office in 2024 in August, atorvastatin and losartan 12.5 mg daily were added. Patient was cleared by cardiology and at this time her symptoms of chest and back pain have completely resolved and she has been afebrile. She will follow-up with her cardiothoracic surgeon Dr. Kee on discharge as well as her primary mat cutter Dr. Pineda. Please see medication reconciliation for a list of current medications. Thank you for allowing us to participate in the care of this patient. The impression and plan of care has been dictated by Siobhan Peterson, Nurse Practitioner as directed. Dr. Josué MD I have performed a history and physical examination and medical decision making of this patient, discussed the same with the dictator, and agree with the dictators assessment and plan as written, documented as a scribe. Based on total visit time, I have performed more than 50% of this visit. Patient Condition at Discharge: Stable Plan - Discharge Summary New Discharge Prescriptions: New Losartan [Cozaar] 12.5 mg PO DAILY #30 tab Atorvastatin [Lipitor] 40 mg PO HS #30 tab Nitroglycerin Sl Tabs [Nitrostat] 0.4 mg SUBLINGUAL Q5M PRN #25 tab PRN Reason: Chest Pain Continue Aspirin 81 mg PO DAILY Vitamin C (Unknown Dose) 1 tab PO DAILY polyethylene glycoL 3350 [Miralax] 17 gm PO DAILY Multivitamins, Thera [Multivitamin (formulary)] 1 tab PO Q48H Vitamin D3 (Unknown Dose) 1 cap PO DAILY Wheat Germ Oil (Unknown Dose) 1 cap PO DAILY Loratadine [Claritin] 10 mg PO DAILY Discharge Medication List Aspirin 81 mg PO DAILY 05/16/21 [History] Multivitamins, Thera [Multivitamin (formulary)] 1 tab PO Q48H 11/09/22 [History] polyethylene glycoL 3350 [Miralax] 17 gm PO DAILY 11/09/22 [History] Loratadine [Claritin] 10 mg PO DAILY 09/30/24 [History] Vitamin C (Unknown Dose) 1 tab PO DAILY 09/30/24 [History] Vitamin D3 (Unknown Dose) 1 cap PO DAILY 09/30/24 [History] Wheat Germ Oil (Unknown Dose) 1 cap PO DAILY 09/30/24 [History] Atorvastatin [Lipitor] 40 mg PO HS #30 tab 10/01/24 [Rx] Losartan [Cozaar] 12.5 mg PO DAILY #30 tab 10/01/24 [Rx] Nitroglycerin Sl Tabs [Nitrostat] 0.4 mg SUBLINGUAL Q5M PRN #25 tab 10/01/24 [Rx] Follow up Appointment(s)/Referral(s): Oc Santacruz DO [Primary Care Provider] - 1-2 days Javon Pineda MD [STAFF PHYSICIAN] - 10/03/24 1:00 pm Patient Instructions/Handouts: Chest Pain (ED), Chest Pain (DC) Activity/Diet/Wound Care/Special Instructions: Follow up with your cardiothoracic specialist out of [facility] RETURN TO ER FOR WORSENING SYMPTOMS, PROBLEMS, OR CONCERNS. Discharge Disposition: HOME SELF-CARE
== END 2024-10-01 16:20 | disposition home or self-care (01) ==
LOC: EC 14:50 → 6NMEDSUR 17:14
PROVIDERS: ADMIT Internal Medicine; ATTEND Internal Medicine
DX: R07.89 Other chest pain (principal); E87.6 Hypokalemia; B34.9 Viral infection, unspecified; I71.21 Aneurysm of the ascending aorta, without rupture; Q25.43 Congenital aneurysm of aorta; I08.3 Combined rheumatic disorders of mitral, aortic and tricuspid valves; E78.5 Hyperlipidemia, unspecified; R91.1 Solitary pulmonary nodule; D35.01 Benign neoplasm of right adrenal gland; R91.8 Other nonspecific abnormal finding of lung field; I25.2 Old myocardial infarction; M54.2 Cervicalgia; M54.9 Dorsalgia, unspecified; Z79.82 Long term (current) use of aspirin; Z79.899 Other long term (current) drug therapy; Z88.5 Allergy status to narcotic agent; Z91.048 Other nonmedicinal substance allergy status; Z11.52 Encounter for screening for COVID-19; Z11.59 Encounter for screening for other viral diseases; Z90.49 Acquired absence of other specified parts of digestive tract
CPT/HCPCS: 96376; 96361; 96365; 96375; 99285; 36415; 93005; 83880; 80061; 80053; 82150; 83690; 83735; 84484; 85025; 85610; 85730; 84145; 87636; 71045; 71275; 74175; G0378 ×2; J2270; J2405; J3490; J0131; Q9967

== ENCOUNTER → 2025-02-19 | Outpatient (CLI) | payer OTHER ==
[2025-02-19 15:15] LABS: HCT 40.5 % (37.2-46.3); HGB 13.5 g/dL (12.0-15.0); MCH 30.3 pg (27.0-32.0); MCHC 33.3 g/dL (32.0-37.0); MCV 90.8 FL (80.0-97.0); NRBC Per 100 WBC 0 X 10*3/uL (0.00-0.01); Platelet Count 243 X 10*3/uL (140-440); RBC 4.46 X 10*6/uL (4.10-5.20); RDW 13.2 % (11.5-14.5); WBC 5.13 X 10*3/uL (4.50-10.00)
[2025-02-19 15:18] LABS: NT-Pro-B-Type Natriuretic Pept 103 pg/mL (0-125)
[2025-02-19 15:22] LABS: Anion Gap 12.30 mmol/L (4.00-12.00); BUN/Creat Ratio 12.44 Ratio (12.00-20.00); Blood Urea Nitrogen 11.2 mg/dL (9.0-27.0); Calcium 9.8 mg/dL (8.7-10.3); Carbon Dioxide 26.7 mmol/L (21.6-31.8); Chloride 106 mmol/L (96-109); Glucose 98 mg/dL (70-110); Potassium 4.4 mmol/L (3.5-5.5); Sodium 145 mmol/L (135-145)
== END | disposition home or self-care (01) ==
LOC: LABWHC1 09:13
PROVIDERS: ATTEND Internal Medicine Cardiovascular Disease
DX: R06.02 Shortness of breath (principal)
CPT/HCPCS: 36415; 80048; 83880; 85027

== ENCOUNTER 2025-03-01 20:19 | Observation (INO) | payer OTHER ==
--- NOTE | 2025-03-01 20:51 | ED ---
General Adult HPI - General Chief complaint: Chest Pain Stated complaint: Chest pressure Time Seen by Provider: 03/01/25 20:23 Source: patient, RN notes reviewed Mode of arrival: EMS Limitations: no limitations - History of Present Illness Initial comments: 59-year-old female presents to the emergency department for evaluation of chest pressure. Patient reports that this started around 10 AM today. She also notes palpitations and intermittent shortness of breath. Patient endorses associated nausea. She was provided 324 mg of aspirin on the ambulance. She is also administered Zofran at that time which did help with her nausea. She denies any cough, congestion, recent fever, chills. She is not on blood thinners. - Related Data Home Medications Medication Instructions Recorded Confirmed Aspirin 81 mg PO DAILY 05/16/21 03/02/25 polyethylene glycoL 3350 [Miralax] 17 gm PO DAILY 11/09/22 03/02/25 Loratadine [Claritin] 10 mg PO DAILY 09/30/24 03/02/25 Vitamin C (Unknown Dose) 1 tab PO DAILY 09/30/24 03/02/25 Vitamin D3 (Unknown Dose) 1 cap PO DAILY 09/30/24 03/02/25 Pantoprazole [Protonix] 40 mg PO DAILY 03/02/25 03/02/25 Previous Rx's Medication Instructions Recorded Acetaminophen Tab [Tylenol] 650 mg PO Q6HR PRN tab 03/03/25 Atorvastatin [Lipitor] 40 mg PO HS #30 tab 03/03/25 Allergies Allergy/AdvReac Type Severity Reaction Status Date / Time codeine Allergy Rash/Hives Verified 03/02/25 09:11 tape Allergy Severe Swelling Uncoded 09/30/24 16:07 Review of Systems ROS Statement: Those systems with pertinent positive or pertinent negative responses have been documented in the HPI. ROS Other: All systems not noted in ROS Statement are negative. Past Medical History Past Medical History: Myocardial Infarction (AL) Additional Past Medical History / Comment(s): age 35 yrs, "leaky valve", aortic aneurysm Last Myocardial Infarction Date:: 1999 History of Any Multi-Drug Resistant Organisms: None Reported Past Surgical History: Adenoidectomy, Appendectomy, Breast Surgery, Section, Cholecystectomy, Heart Catheterization, Hernia Repair, Hysterectomy, Tonsillectomy Additional Past Surgical History / Comment(s): RT BREAST BX X 7, COLONOSCOPY, BRONCHOSCOPY, hernia repair x2, laparoscopic lysis of adhesions, egd/colonsocopy Past Anesthesia/Blood Transfusion Reactions: Previous Problems w/ Anesthesia, Motion Sickness, Postoperative Nausea & Vomiting (PONV) Additional Past Anesthesia/Blood Transfusion Reaction / Comment(s): HAS HARD TIME WAKING UP FROM ANESTHESIA. GETS SEVERE PONV WITH MINIMAL ANESTHESIA Past Psychological History: No Psychological Hx Reported Smoking Status: Never smoker Past Alcohol Use History: None Reported Past Drug Use History: None Reported - Past Family History Mother Family Medical History: Cancer, Coronary Artery Disease (CAD) Father Family Medical History: Blood Disorder, Coronary Artery Disease (CAD) Additional Family Medical History / Comment(s): HAS CLOTTING DISORDER General Exam Limitations: no limitations General appearance: alert, in no apparent distress Head exam: Present: atraumatic, normocephalic, normal inspection Eye exam: Present: normal appearance, PERRL, EOMI. Absent: scleral icterus, conjunctival injection, periorbital swelling Respiratory exam: Present: normal lung sounds bilaterally. Absent: respiratory distress, wheezes, rales, rhonchi, stridor Cardiovascular Exam: Present: regular rate, normal rhythm, normal heart sounds. Absent: systolic murmur, diastolic murmur, rubs, gallop, clicks GI/Abdominal exam: Present: soft, normal bowel sounds. Absent: distended, tenderness, guarding, rebound, rigid Extremities exam: Present: normal inspection, full ROM, normal capillary refill. Absent: tenderness, pedal edema, joint swelling, calf tenderness Back exam: Present: normal inspection Neurological exam: Present: alert, oriented X3 Psychiatric exam: Present: normal affect, normal mood Skin exam: Present: warm, dry, intact, normal color. Absent: rash Course Vital Signs 03/01/25 03/01/25 20:24 23:21 Temperature 97.3 F L 99 F Pulse Rate 111 H 90 Respiratory 18 18 Rate Blood Pressure 111/93 110/76 O2 Sat by Pulse 99 96 Oximetry Medical Decision Making - Medical Decision Making Was pt. sent in by a medical professional or institution (, PA, PROFESSOR OF COUNSELING, urgent care, hospital, or retirement...) When possible be specific @ -[No] Did you speak to anyone other than the patient for history (EMS, parent, family, police, friend...)? What history was obtained from this source @ -[No] Did you review nursing and triage notes (agree or disagree)? Why? @ -[I reviewed and agree with nursing and triage notes] Were old charts reviewed (outside hosp., previous admission, EMS record, old EKG, old radiological studies, urgent care reports/EKG's, retirement records)? Report findings @ -[No old charts were reviewed] Differential Diagnosis (chest pain, altered mental status, abdominal pain women, abdominal pain men, vaginal bleeding, weakness, fever, dyspnea, syncope, headache, dizziness, GI bleed, back pain, seizure, CVA, palpatations, mental health, musculoskeletal)? @ -Differential Chest Pain: Stable Angina, Unstable Angina, STEMI, NSTEMI Aortic Dissection, Pneumothorax, Musculoskeletal, Esophageal Spasm GERD, Cholecystitis, Pancreatitis, Zoster, this is not meant to be an all-inclusive list. EKG interpreted by me (3pts min.). @ -EKG at 2032 normal sinus tachycardia rate of 111, WI 162, 56, QT/QTc 337/402 X-rays interpreted by me (1pt min.). @ -Chest x-ray reveals no acute process CT interpreted by me (1pt min.). @ -[None done] U/S interpreted by me (1pt. min.). @ -[None done] What testing was considered but not performed or refused? (CT, X-rays, U/S, labs)? Why? @ -[None] What meds were considered but not given or refused? Why? @ -[None] Did you discuss the management of the patient with other professionals (professionals i.e. , PA, PROFESSOR OF COUNSELING, lab, RT, psych nurse, social organization professor, probate lawyer, teacher, parcel post officer, case filler)? Give summary @ -Discussed with [facility] who is accepting of the admission Was smoking cessation discussed for >3mins.? @ -[No] Was critical care preformed (if so, how long)? @ -[No] Were there social determinants of health that impacted care today? How? (Homelessness, low income, unemployed, alcoholism, drug addiction, transportation, low edu. Level, literacy, decrease access to med. care, [facility] [facility], rehab)? @ -[No] Was there de-escalation of care discussed even if they declined (Discuss DNR or withdrawal of care, Hospice)? DNR status @ -[No] What co-morbidities impacted this encounter? (DM, HTN, Smoking, COPD, CAD, Cancer, CVA, ARF, Chemo, Hep., AIDS, mental health diagnosis, sleep apnea, morbid obesity)? @ -[None] Was patient admitted / discharged? Hospital course, mention meds given and route, prescriptions, significant lab abnormalities, going to OR and other pertinent info. @ -admitted. Patient presented to the emergency department for evaluation o fchest pain/pressure. Laboratory studies reveal no significant leukocytosis, hemoglobin 14.6; normal coagulation studies; CMP is nonactionable, negative initial troponin. Chest x-ray reveals no acute process. Patient will be admitted to the hospital for observation and cardiology consultation with serial. She is understanding agreeable with this plan. Patient stable at time of admission. Case discussed with [facility] who is accepting of the admission Undiagnosed new problem with uncertain prognosis? @ -[No] Drug Therapy requiring intensive monitoring for toxicity (Heparin, Nitro, Insulin, Cardizem)? @ -[No] Were any procedures done? @ -[No] Diagnosis/symptom? @ -chest pain Acute, or Chronic, or Acute on Chronic? @ -acute Uncomplicated (without systemic symptoms) or Complicated (systemic symptoms)? @ -[uncomplicated Side effects of treatment? @ -[No] Exacerbation, Progression, or Severe Exacerbation? @ -[No] Poses a threat to life or bodily function? How? (Chest pain, USA, AL, pneumonia, PE, COPD, DKA, ARF, appy, cholecystitis, CVA, Diverticulitis, Homicidal, Suicidal, threat to staff... and all critical care pts) @ - - Lab Data Result diagrams: 03/03/25 05:52 03/03/25 05:52 Lab Results 03/01/25 03/01/25 03/01/25 Range/Units 20:58 20:58 20:58 WBC 7.10 (4.50-10.00) 10*3/uL RBC 4.69 (4.10-5.20) 10*6/uL Hgb 14.6 (12.0-15.0) g/dL Hct 40.3 (37.2-46.3) % MCV 85.9 (80.0-97.0) fL MCH 31.1 (27.0-32.0) pg MCHC 36.2 (32.0-37.0) g/dL Plt Count 250 (140-440) 10*3/uL MPV 10.1 (9.5-12.2) fL Immature Gran % (Auto) 0.3 % Neutrophils % 67.2 % Lymphocytes % 26.8 % Monocytes % 4.6 % Eosinophils % 0.3 % Basophils % 0.8 % Immature Gran # 0.02 (0.00-0.04) 10*3/uL Neutrophils # 4.77 (1.80-7.70) 10*3/uL Lymphocytes # 1.90 (0.90-5.00) 10*3/uL Monocytes # 0.33 (0.20-1.00) 10*3/uL Eosinophils # 0.02 L (0.04-0.35) 10*3/uL Basophils # 0.06 (0.00-0.10) 10*3/uL PT 11.3 (10.0-12.5) sec INR 1.0 (<1.2) APTT 22.4 (22.0-30.0) sec Sodium 140 (137-145) mmol/L Potassium 3.9 (3.5-5.1) mmol/L Chloride 107 (98-107) mmol/L Carbon Dioxide 20 L (22-30) mmol/L Anion Gap 13 mmol/L BUN 12 (7-17) mg/dL Creatinine 0.78 (0.52-1.04) mg/dL Est GFR (CKD-EPI)AfAm >90 (>60 ml/min/1.73 sqM) Est GFR (CKD-EPI)NonAf 84 (>60 ml/min/1.73 sqM) Glucose 106 H (74-99) mg/dL Calcium 9.8 (8.4-10.2) mg/dL Magnesium 1.9 (1.6-2.3) mg/dL Total Bilirubin 0.6 (0.2-1.3) mg/dL AST 21 (14-36) U/L ALT 13 (4-34) U/L Alkaline Phosphatase 93 (38-126) U/L Troponin I (0.000-0.034) ng/mL Total Protein 7.3 (6.3-8.2) g/dL Albumin 4.5 (3.5-5.0) g/dL Lipase 74 (23-300) U/L // Range/Units 20:58 WBC (4.50-10.00) 10*3/uL RBC (4.10-5.20) 10*6/uL Hgb (12.0-15.0) g/dL Hct (37.2-46.3) % MCV (80.0-97.0) fL MCH (27.0-32.0) pg MCHC (32.0-37.0) g/dL Plt Count (140-440) 10*3/uL MPV (9.5-12.2) fL Immature Gran % (Auto) % Neutrophils % % Lymphocytes % % Monocytes % % Eosinophils % % Basophils % % Immature Gran # (0.00-0.04) 10*3/uL Neutrophils # (1.80-7.70) 10*3/uL Lymphocytes # (0.90-5.00) 10*3/uL Monocytes # (0.20-1.00) 10*3/uL Eosinophils # (0.04-0.35) 10*3/uL Basophils # (0.00-0.10) 10*3/uL PT (10.0-12.5) sec INR (<1.2) APTT (22.0-30.0) sec Sodium (137-145) mmol/L Potassium (3.5-5.1) mmol/L Chloride (98-107) mmol/L Carbon Dioxide (22-30) mmol/L Anion Gap mmol/L BUN (7-17) mg/dL Creatinine (0.52-1.04) mg/dL Est GFR (CKD-EPI)AfAm (>60 ml/min/1.73 sqM) Est GFR (CKD-EPI)NonAf (>60 ml/min/1.73 sqM) Glucose (74-99) mg/dL Calcium (8.4-10.2) mg/dL Magnesium (1.6-2.3) mg/dL Total Bilirubin (0.2-1.3) mg/dL AST (14-36) U/L ALT (4-34) U/L Alkaline Phosphatase (38-126) U/L Troponin I <0.012 (0.000-0.034) ng/mL Total Protein (6.3-8.2) g/dL Albumin (3.5-5.0) g/dL Lipase (23-300) U/L Disposition Clinical Impression: Chest pain Disposition: ADMITTED IP TO THIS HOSP Condition: Stable Is patient prescribed a controlled substance at d/c from ED?: No
[2025-03-01] MEDS: ONDANSETRON 4 MG/2 ML VIAL IVP STA (20:56)
[2025-03-01] MEDS: MORPHINE SULFATE 4 MG/ML SYRINGE IV STA (20:57)
[2025-03-01 21:10] LABS: Basophils # (A) 0.06 10*3/uL (0.00-0.10); Basophils % (A) 0.8 %; Eosinophils # (A) 0.02 10*3/uL (0.04-0.35); Eosinophils % (A) 0.3 %; HCT 40.3 % (37.2-46.3); HGB 14.6 g/dL (12.0-15.0); Lymphocytes # (A) 1.90 10*3/uL (0.90-5.00); Lymphocytes % (A) 26.8 %; MCH 31.1 pg (27.0-32.0); MCHC 36.2 g/dL (32.0-37.0); MCV 85.9 fL (80.0-97.0); Monocytes # (A) 0.33 10*3/uL (0.20-1.00); Monocytes % (A) 4.6 %; Neutrophils # (A) 4.77 10*3/uL (1.80-7.70); Neutrophils % (A) 67.2 %; Platelet Count 250 10*3/uL (140-440); RBC 4.69 10*6/uL (4.10-5.20); RDW 12.3 % (11.5-14.5); WBC 7.10 10*3/uL (4.50-10.00)
--- NOTE | 2025-03-01 21:28 | XR ---
EXAMINATION TYPE: XR chest 2V DATE OF EXAM: 03/01/2025 9:21 PM COMPARISON: Chest x-ray 09/30/2024. CLINICAL INDICATION: Female, 59 years old with history of Chest Pain; [facility] TECHNIQUE: XR chest 2V Frontal and lateral views of the chest. FINDINGS: Lungs/Pleura: There is no evidence of pleural effusion, focal consolidation, or pneumothorax. Pulmonary vascularity: Unremarkable. Heart/mediastinum: Cardiomediastinal silhouette is unremarkable. Musculoskeletal: No acute osseous pathology. Other findings: None IMPRESSION: No acute cardiopulmonary disease/process. [facility], , 03/01/2025 9:26 PM
[2025-03-01 21:36] LABS: ALT 13 U/L (4-34); AST 21 U/L (14-36); African American GFR (CKD) >90 (>60 ml/min/1.73 sqM); Albumin 4.5 g/dL (3.5-5.0); Alkaline Phosphatase 93 U/L (38-126); Anion Gap 13 mmol/L; Blood Urea Nitrogen 12 mg/dL (7-17); Calcium 9.8 mg/dL (8.4-10.2); Carbon Dioxide 20 mmol/L (22-30); Chloride 107 mmol/L (98-107); Glucose 106 mg/dL (74-99); Lipase 74 U/L (23-300); Magnesium 1.9 mg/dL (1.6-2.3); Non-African American GFR(CKD) 84 (>60 ml/min/1.73 sqM); Potassium 3.9 mmol/L (3.5-5.1); Sodium 140 mmol/L (137-145); Total Protein 7.3 g/dL (6.3-8.2)
[2025-03-01 21:52] LABS: INR 1.0 (<1.2); Partial Thromboplastin Time 22.4 sec (22.0-30.0); Prothrombin Time 11.3 sec (10.0-12.5)
[2025-03-01] MEDS ORDERED: NALOXONE 0.4 MG/ML 1 ML VIAL IV PRN (22:52)
[2025-03-01] MEDS: SODIUM CHLORIDE 0.9% 1,000 ML IV SCH (23:20)
[2025-03-01] MEDS: MORPHINE SULFATE 4 MG/ML SYRINGE IV PRN (23:26)
[2025-03-01] MEDS: ONDANSETRON 4 MG/2 ML VIAL IVP PRN (23:41)
[2025-03-02] MEDS: ACETAMINOPHEN TAB 325 MG TAB PO PRN (06:19)
[2025-03-02] MEDS ORDERED: CAFFEINE CITRATE 60 MG/3 ML VIAL IV PRN (08:20)
[2025-03-02] MEDS ORDERED: AMINOPHYLLINE 500 MG/20 ML VIAL IV PRN (08:20)
[2025-03-02] MEDS ORDERED: REGADENOSON 0.4 MG/5 ML SYRINGE IV PRN (08:20)
[2025-03-02] MEDS ORDERED: HYDROcodone/APAP 5-325MG 1 EACH TAB PO PRN (10:03)
[2025-03-02] MEDS ORDERED: HYDROmorphone 0.5 MG/0.5 ML SYRINGE IVP PRN (10:03)
--- NOTE | 2025-03-02 10:42 | P.CRDCN ---
History of Present Illness History of present illness: HISTORY OF PRESENT ILLNESS: This is a 59-year-old female with a past medical history significant for aortic root aneurysm, aortic regurgitation and GERD. Patient follows in the office with Dr. Pineda. Patient also follows with a physician at [facility] for her aortic root aneurysm. We have been asked to see the patient in consultation for chest pain. Patient examined at the bedside. Patient presented to the hospital with a chief complaint of palpitations and shortness of breath. Patient states she was at home sitting in her chair around 10:00 in the morning when she st arted to feel short of breath. She also reports having palpitations at that time. She states that she has been having palpitations for a while but she can usually get it to settle down on her own. She also reports having dizziness without any episodes of syncope. She reports having some dry heaves yesterday which have since resolved. She does report some shortness of breath over the past week with activity. She states yesterday she had some chest pain that radiated into her back. She states that she had a similar episode of chest pain about 2 weeks ago. DIAGNOSTICS: - EKG reveals sinus tachycardia with no signs of acute ischemia. - Chest xray negative for acute process. - Laboratory data: WBC 7.10. Hemoglobin 14.6. Platelet count 250. Sodium 140. Potassium 3.9. BUN 12. Creatinine 0.78. Magnesium 1.9. Troponin negative x 3. - Current home cardiac medications include aspirin 81 mg daily. - Patient underwent BRUCE in September 2024 revealing dilated aortic sinuses measuring 4.4 cm, mild MR, mild to moderate TR, and moderate aortic regurgitation - Most recent echocardiogram obtained in August 2024 revealed ejection fraction 55%, moderate to severe aortic regurgitation, mild mitral regurgitation, moderate tricuspid regurgitation - Patient underwent exercise stress test in September 2023 which was nondiagnostic secondary to baseline EKG abnormalities - Cardiac catheterization history: Unknown REVIEW OF SYSTEMS: At the time of my exam: CONSTITUTIONAL: Denies fever or chills. HEENT: Denies blurred vision, vision changes, or eye pain. Denies hemoptysis CARDIOVASCULAR: Denies chest pain. Denies orthopnea. Denies PND. Denies palpitations RESPIRATORY: Denies shortness of breath. GASTROINTESTINAL: Denies abdominal pain. Denies nausea or vomiting. HEMATOLOGIC: Denies bleeding disorders. GENITOURINARY: Denies any blood in urine. SKIN: Denies pruitis. Denies rash. PHYSICAL EXAM: VITAL SIGNS: Reviewed. GENERAL: Well-developed in no acute distress. HEENT: Head is normocephalic. Pupils are equal, round. Sclerae anicteric. Mucous membranes of the mouth are moist. Neck supple. No JVD or thyromegaly LUNGS: Respirations even and unlabored. Lungs essentially clear to auscultation bilaterally. HEART: Regular rate and rhythm. S1 and S2 heard. Systolic and diastolic murmur noted. ABDOMEN: Soft. Nondistended. Nontender. EXTREMITIES: Normal range of motion. No clubbing or cyanosis. Peripheral pulses intact. No lower extremity edema NEUROLOGIC: Awake and alert. Oriented x 3. ASSESSMENT: Palpitations Shortness of breath Chest pain, troponin negative x 3 Moderate to severe aortic regurgitation History of aortic root aneurysm Hyperlipidemia PLAN: An acute coronary event has been ruled out Obtain 2D echo to assess cardiac structure and function Patient to undergo Lexiscan stress test today Resume home cardiac medications including aspirin Add Lipitor 40 mg daily Further recommendations pending patient course Nurse practitioner note has been reviewed by physician. Signing provider agrees with the documented findings, assessment, and plan of care documented by CAMPAIGN COORDINATOR as a scribe. Past Medical History Past Medical History: Myocardial Infarction ([place]) Additional Past Medical History / Comment(s): age 35 yrs, "leaky valve", aortic aneurysm 4.0 in size Last Myocardial Infarction Date:: 1999 History of Any Multi-Drug Resistant Organisms: None Reported Past Surgical History: Adenoidectomy, Appendectomy, Breast Surgery, Section, Cholecystectomy, Heart Catheterization, Hernia Repair, Hysterectomy, To nsillectomy Additional Past Surgical History / Comment(s): RT BREAST BX X 7, COLONOSCOPY, BRONCHOSCOPY, hernia repair x2, laparoscopic lysis of adhesions, egd/colonsocopy Past Anesthesia/Blood Transfusion Reactions: Previous Problems w/ Anesthesia, M otion Sickness, Postoperative Nausea & Vomiting (PONV) Additional Past Anesthesia/Blood Transfusion Reaction / Comment(s): HAS HARD TIME WAKING UP FROM ANESTHESIA. GETS SEVERE PONV WITH MINIMAL ANESTHESIA Past Psychological History: No Psychological Hx Reported Smoking Status: Never smoker Past Alcohol Use History: None Reported Past Drug Use History: None Reported - Past Family History Mother Family Medical History: Cancer, Coronary Artery Disease (CAD) Father Family Medical History: Blood Disorder, Coronary Artery Disease (CAD) Additional Family Medical History / Comment(s): HAS CLOTTING DISORDER Medications and Allergies Home Medications Medication Instructions Recorded Confirmed Type Aspirin 81 mg PO DAILY 05/16/21 03/02/25 History polyethylene glycoL 3350 [Miralax] 17 gm PO DAILY 11/09/22 03/02/25 History Loratadine [Claritin] 10 mg PO DAILY 09/30/24 03/02/25 History Vitamin C (Unknown Dose) 1 tab PO DAILY 09/30/24 03/02/25 History Vitamin D3 (Unknown Dose) 1 cap PO DAILY 09/30/24 03/02/25 History Pantoprazole [Protonix] 40 mg PO DAILY 03/02/25 03/02/25 History Allergies Allergy/AdvReac Type Severity Reaction Status Date / Time codeine Allergy Rash/Hives Verified 03/02/25 09:11 tape Allergy Severe Swelling Uncoded 09/30/24 16:07 Physical Exam Vitals: Vital Signs Temp Pulse Pulse Resp BP BP BP 03/02/25 08:38 03/02/25 07:25 98 F 80 17 122/78 03/02/25 00:29 79 18 120/69 03/01/25 23:21 99 F 90 18 110/76 03/01/25 20:24 97.3 F L 111 H 18 111/93 Pulse Ox 03/02/25 08:38 99 03/02/25 07:25 99 03/02/25 00:29 100 03/01/25 23:21 96 03/01/25 20:24 99 Intake and Output 03/01/25 03/02/25 03/02/25 22:59 06:59 14:59 Intake Total 0 Balance 0 Intake: Oral 0 Other: # Voids 1 Weight 66.678 kg 66.678 kg Results 03/01/25 20:58 03/01/25 20:58 Cardiac Enzymes 03/01/25 03/01/25 03/02/25 Range/Units 20:58 20:58 03:48 AST 21 (14-36) U/L Troponin I <0.012 <0.012 (0.000-0.034) ng/mL 03/02/25 Range/Units 06:15 AST (14-36) U/L Troponin I <0.012 (0.000-0.034) ng/mL Coagulation 03/01/25 Range/Units 20:58 PT 11.3 (10.0-12.5) sec APTT 22.4 (22.0-30.0) sec CBC 03/01/25 Range/Units 20:58 WBC 7.10 (4.50-10.00) 10*3/uL RBC 4.69 (4.10-5.20) 10*6/uL Hgb 14.6 (12.0-15.0) g/dL Hct 40.3 (37.2-46.3) % Plt Count 250 (140-440) 10*3/uL Comprehensive Metabolic Panel 03/01/25 Range/Units 20:58 Sodium 140 (137-145) mmol/L Potassium 3.9 (3.5-5.1) mmol/L Chloride 107 (98-107) mmol/L Carbon Dioxide 20 L (22-30) mmol/L BUN 12 (7-17) mg/dL Creatinine 0.78 (0.52-1.04) mg/dL Glucose 106 H (74-99) mg/dL Calcium 9.8 (8.4-10.2) mg/dL AST 21 (14-36) U/L ALT 13 (4-34) U/L Alkaline Phosphatase 93 (38-126) U/L Total Protein 7.3 (6.3-8.2) g/dL Albumin 4.5 (3.5-5.0) g/dL Current Medications Generic Name Dose Route Start Last Admin Trade Name Freq PRN Reason Stop Dose Admin Acetaminophen 650 mg 03/01/25 22:52 03/02/25 06:19 Acetaminophen Tab 325 Mg Tab PO 650 mg Q6HR PRN Administration Mild Pain or Fever > 100.5 Hydrocodone Bitart/Acetaminophen 1 each 03/02/25 10:03 Hydrocodone/Apap 5-325mg 1 Each Tab PO Q6HR PRN Pain Aminophylline 100 mg 03/02/25 08:20 Aminophylline 500 Mg/20 Ml Vial IV 03/02/25 12:21 ONCE PRN Patient Response Ascorbic Acid 500 mg 03/03/25 09:00 Ascorbic Acid 500 Mg Tab PO DAILY [facility] Aspirin 81 mg 03/02/25 09:00 Aspirin 81 Mg PO DAILY [facility] Atorvastatin Calcium 40 mg 03/02/25 21:00 Atorvastatin 40 Mg Tab PO HS [facility] Caffeine Citrate 60 mg 03/02/25 08:20 Caffeine Citrate 60 Mg/3 Ml Vial IV 03/02/25 12:21 ONCE PRN Patient Response Cholecalciferol 10 mcg 03/03/25 09:00 Cholecalciferol 10 Mcg (400 Iu) Tablet PO DAILY [facility] Hydromorphone HCl 0.25 mg 03/02/25 10:03 Hydromorphone 0.5 Mg/0.5 Ml Syringe IVP Q4HR PRN Severe Pain (Scale 7 to 10) Sodium Chloride 1,000 mls @ 75 mls/hr 03/01/25 23:00 03/01/25 23:20 Saline 0.9% IV 75 mls/hr .[id number] [facility] Administration Loratadine 10 mg 03/03/25 09:00 Loratadine 10 Mg Tab PO DAILY [facility] Naloxone HCl 0.2 mg 03/01/25 22:52 Naloxone 0.4 Mg/Ml 1 Ml Vial IV Q2M PRN Opioid Reversal Ondansetron HCl 4 mg 03/01/25 22:52 03/02/25 06:19 Ondansetron 4 Mg/2 Ml Vial IVP 4 mg Q8HR PRN Administration Nausea And Vomiting Pantoprazole Sodium 40 mg 03/02/25 10:15 Pantoprazole 40 Mg/10 Ml Vial IVP BID [facility] Polyethylene Glycol 17 gm 03/03/25 09:00 Polyethylene Glycol 3350 17 Gm Powd.Pack PO DAILY [facility] Regadenoson 0.4 mg 03/02/25 08:20 Regadenoson 0.4 Mg/5 Ml Syringe IV 03/02/25 12:21 ONCE PRN Per Protocol Intake and Output 03/01/25 03/02/25 03/02/25 22:59 06:59 14:59 Intake Total 0 Balance 0 Intake: Oral 0 Other: # Voids 1 Weight 66.678 kg 66.678 kg 03/01/25 20:58 03/01/25 20:58
--- NOTE | 2025-03-02 13:19 | NM ---
EXAMINATION TYPE: NM stress lexiscan cardiolite DATE OF EXAM: 03/02/2025 COMPARISON: NONE CLINICAL INDICATION: Female, 59 years old with history of CP; TECHNIQUE: After the intravenous administration of 10.3 mCi Tc 99m Sestamibi - Cardiolite resting SP ECT images acquired 45 minutes post injection. The patient received 0.4mg Lexiscan, 25.1 mCi Tc 99m Sestamibi - Stress images obtained [address] injection FINDINGS: Review of stress and rest SPECT images demonstrates no distinct perfusion abnormality. Gated analysi s shows normal wall motion with an estimated left ventricular ejection fraction of 82 %. IMPRESSION: No scintigraphic evidence for reversible ischemia. [facility], , 03/02/2025 1:17 PM
[2025-03-02] MEDS: PANTOPRAZOLE 40 MG/10 ML VIAL IVP SCH (13:36)
[2025-03-02] MEDS: ASPIRIN 81 MG PO SCH (13:36)
--- NOTE | 2025-03-02 13:37 | CA ---
Lexiscan Nuclear Stress Test Report Name: Vilma Yepez Exam Date: 03/02/2025 11:05 Exam Location: [facility] Stress Ht (in): 64 Wt (lb): 147 BSA: 1.72 Ordering Phys: Michelle Elam Referring Phys: MANUEL Technologist: Arpit Avery Age: 59 Gender: F : 1965 Procedure CPT: Indications: Reflex order-Stress test ICD-10 Codes: Patient History: Chest pressure, shortness of breath and palpitations. Medications: Meds past 24 hrs: Pretest Chest Pain: STRESS TEST Lexiscan Protocol Exercise Duration (min:sec): 02:[address] Depressions (mm): Angina Score: Lawrence Score: Resting HR (bpm): 77 Peak HR (bpm): 93 Resting BP (mmHg): 145 / 80 Peak BP (mmHg): 142 / 77 MPHR: 161 Target HR: 137 % MPHR: 58 METS: 1.0 Total Dose: Peak Dose: Atropine: Double Product: 86326 BP Response: Stress Termination: Infusion complete Stress Symptoms: No chest pain or symptoms Stress Summary: ECG ANALYSIS Resting ECG: Sinus rhythm. Normal conduction. No arrhythmias. Nonspecific ST-T abnormality. Stress ECG: No ECG changes from baseline with Lexiscan infusion. CONCLUSIONS No ECG evidence of ischemia with Lexiscan infusion. Nuclear test results to follow. Dr. Leif sIsa MD (Electronically Signed) Final Date: 02 March 2025 13:36
--- NOTE | 2025-03-02 17:45 | CT ---
EXAMINATION TYPE: CT angio chest CT DLP: 491 mGycm, Automated exposure control for dose reduction was used. DATE OF EXAM: 03/02/2025 5:31 PM COMPARISON: CTA thoracoabdominal 09/30/2024, CT chest abdomen 11/26/2023, PET/CT 12/01/2022, chest 2022 CLINICAL INDICATION:Female, 59 years old with history of Elevated D-dimer; elevated d-dimer TECHNIQUE/CONTRAST: CTA scan of the thorax is performed with IV Contrast, patient injected with 100ml mL of Isovue 370, p ulmonary embolism protocol. MIP images are created and reviewed. FINDINGS: Pulmonary Artery: There is no evidence for a filling defect within the pulmonary vasculature to sugge st acute pulmonary embolism. The pulmonary artery is of normal size. Lungs/Pleura: No evidence of focal consolidation, pleural effusion or pneumothorax. Stable solid righ t lung base 6.8 mm pulmonary nodule dating back to 2022 and considered benign. Demonstrates punctate central calcification. No new or enlarging pulmonary nodules. Posterior right fat filled [place] r[place]. Airway: Large airways are patent. Heart: Size within normal limits.Trace anterior pericardial effusion. No significant coronary artery calcifications. Vasculature: Stable mild aneurysm dilatation of the aortic root measuring up to 4.1 cm. The ascending thoracic aorta measures up to 3.9 cm which is ectatic. Conventional three-vessel aortic arch. The de scending thoracic aorta measures up to 2.1 cm. Mediastinum: No evidence of adenopathy. Musculoskeletal: No acute osseous abnormalities Soft Tissues: Unremarkable. Lower neck: No significant findings. Upper Abdomen: Gallbladder is surgical absent. Cortical defect involving the left mid kidney with non obstructing 3 mm calculus. Stable right adrenal gland 2.5 cm adenoma. IMPRESSION: 1. No evidence of pulmonary embolism or acute thoracic process. 2. Stable right lower lobe pulmonary nodules back to 2022 and considered benign. No new or enlarging pulmonary nodules. 3. Nonobstructing left renal calculus. 4. Stable right adrenal gland 2.5 cm adenoma. 5. Stable mild fusiform aneurysmal dilatation of the aortic root measuring 4.1 cm. [facility], , 03/02/2025 5:43 PM
--- NOTE | 2025-03-02 19:32 | HP ---
HISTORY AND PHYSICAL CHIEF COMPLAINT: Chest pain. HISTORY OF PRESENT ILLNESS: This 59-year-old woman with a past medical history of multiple medical problems including myocardial infarction, aortic aneurysm, leaky valve, being followed by Dr. Pineda [facility], was complaining of chest pain which was felt in the anterior part of chest last night. The pain was rather heaviness and the patient also has some nausea. The pain is improved to 2/10. Cardiology is planning a stress test today. There is no history of any fever, rigors or chills at this time. PAST MEDICAL HISTORY: History of aortic aneurysm of 4 cm, history of leaky valve, history of myocardial infarction. Rest of the chart is also reviewed. HOME MEDICATIONS: Reviewed, include MiraLAX. Dose and rest of the medications are reviewed. ALLERGIES: Codeine and tape. FAMILY HISTORY: History of CAD. SOCIAL HISTORY: No history of smoking or alcohol. REVIEW OF SYSTEMS: Fourteen-point review of systems is negative except as mentioned earlier. PHYSICAL EXAMINATION: VITAL SIGNS: Pulse is 80, blood pressure 110/78, respirations 17. HEENT: Conjunctivae normal. NECK: No jugular venous distention. CARDIOVASCULAR: S1 and S2. ABDOMEN: Soft. LEGS: No edema. NERVOUS SYSTEM: No focal deficits. LABORATORY DATA: Troponins are negative. The EKG shows sinus tachycardia with possibly incomplete right bundle-branch block. Other labs are noted. ASSESSMENT: 1. Chest pain, possible unstable angina. 2. History of aortic aneurysm of 4 cm. 3. History of leaky valve. 4. History of myocardial infarction. 5. History of cardiac catheterization. 6. Multiple complex medical issues. RECOMMENDATION: This 59-year-old woman presented with multiple complex medical issues. We will monitor the patient closely. I would recommend pain management. I would also recommend to proceed with stress test as recommended by Cardiology. I would also recommend a D- dimer. Prognosis guarded because of multiple complex medical conditions. Further recommendations to follow. See orders for details. MMODL / IJN: [id number] /
[2025-03-02] MEDS: ATORVASTATIN 40 MG TAB PO SCH (20:40)
--- NOTE | 2025-03-03 07:29 | CA ---
Transthoracic Echo Report Name: Vilma Yepez Age: 59 Gender: F : 1965 Exam Date: 03/02/2025 12:17 Exam Location: [facility] Ht (in): 63 Wt (lb): 147 Ordering Physician: Michelle Elam Attending/Referring Phys: [id number], Papa Purchase Order Checker Sharyn Prince [facility] Procedure CPT: Indications: hx of valvular disease, sob, cp, aortic dilation Cardiac Hx: Technical Quality: Fair Contrast 1: Total Dose (mL): Contrast 2: Total Dose (mL): MEASUREMENTS (Male / Female) Normal Values 2D ECHO LV Diastolic Diameter PLAX 2.9 cm 4.2 - 5.9 / 3.9 - 5.3 cm LV Systolic Diameter PLAX 2.0 cm IVS Diastolic Thickness 1.4 cm 0.6 - 1.0 / 0.6 - 0.9 cm LVPW Diastolic Thickness 1.3 cm 0.6 - 1.0 / 0.6 - 0.9 cm LV Relative Wall Thickness 0.9 RV Internal Dim ED PLAX 2.8 cm LVOT Diameter 2.0 cm LA Systolic Diameter LX 2.6 cm 3.0 - 4.0 / 2.7 - 3.8 cm LV Diastolic Volume MOD 4C 48.5 cm??? LV Systolic Volume MOD 4C 17.0 cm??? LV Ejection Fraction MOD 4C 64.9 % LV Cardiac Index MOD 4C 1450.2 cm???/min???m??? LV Diastolic Length 4C 7.1 cm LV Systolic Length 4C 5.5 cm LA Volume 34.4 cm??? 18 - 58 / 22 - 52 cm??? LA Volume Index 19.8 cm???/m??? 16 - 28 cm???/m??? Ascending Aorta Diameter 3.5 cm M-MODE Aortic Root Diameter MM 4.1 cm AV Cusp Separation MM 2.2 cm DOPPLER AV Peak Velocity 126.7 cm/s AV Peak Gradient 6.4 mmHg AI Peak Velocity 461.0 cm/s AI Peak Gradient 85.0 mmHg AI Pressure Half Time 493.0 ms LVOT Peak Velocity 118.0 cm/s LVOT Peak Gradient 5.6 mmHg AV Area Cont Eq pk 2.9 cm??? MV Area PHT 4.3 cm??? Mitral E Point Velocity 64.8 cm/s Mitral A Point Velocity 99.9 cm/s Mitral E to A Ratio 0.6 MV Deceleration Time 175.6 ms TR Peak Velocity 268.0 cm/s TR Peak Gradient 28.7 mmHg Right Ventricular Systolic Press 32.8 mmHg PV Peak Velocity 88.4 cm/s PV Peak Gradient 3.1 mmHg FINDINGS Left Ventricle Left ventricular ejection fraction is estimated at 55 to 60%. Normal left ventricular systolic function with no obvious regional wall motion abnormalities. Mildly increased left ventricular wall thickness. Left ventricular cavity size normal. Cannot exclude membranous (infracristal) ventricular septal defect left to right . Right Ventricle Normal right ventricular size and function. Mild pulmonary hypertension. Right ventricular systolic pressure estimated at 36mm hg. Right Atrium Normal right atrial size. No right atrial thrombus or mass seen. Left Atrium Normal left atrial size. Normal left atrial size.no left atrial thrombus or mass present. Mitral Valve Mitral valve thickened. No mitral stenosis. Mild mitral regurgitation. Aortic Valve Thickened aortic valve without stenosis. Mild to moderate moderate aortic regurgitation. Tricuspid Valve Thickened tricuspid valve. Moderate tricuspid regurgitation. Pulmonic Valve Pulmonic valve not well visualized. No pulmonic regurgitation. Pericardium Minimal pericardial effusion. No pleural effusion. Aorta Mild aortic dilatation at the level of the sinuses of valsalva (root). Normal size proximal ascending aorta. CONCLUSIONS 1. Normal left ventricular size and systolic function 2. Cannot exclude a membranous VSD 3. Mild mitral with moderate tricuspid regurgitation 4. Mild to moderate aortic regurgitation Previewed by: Dr. Leif Issa MD (Electronically Signed) Final Date: 03 March 2025 07:28
[2025-03-03 07:38] VITALS: BP 126/80; PULSE 62; RESP 16; TEMP 98.2
[2025-03-03 08:22] LABS: Anion Gap 9.40 mmol/L (4.00-12.00); BUN/Creat Ratio 10.38 Ratio (12.00-20.00); Blood Urea Nitrogen 8.3 mg/dL (9.0-27.0); Calcium 9.0 mg/dL (8.7-10.3); Carbon Dioxide 24.6 mmol/L (21.6-31.8); Chloride 108 mmol/L (96-109); Glucose 97 mg/dL (70-110); Potassium 3.9 mmol/L (3.5-5.5); Sodium 142 mmol/L (135-145)
[2025-03-03 08:46] LABS: Basophils # (A) 0.06 X 10*3/uL (0.00-0.10); Basophils % (A) 1.1 %; Eosinophils # (A) 0.18 X 10*3/uL (0.04-0.35); Eosinophils % (A) 3.3 %; HCT 36.9 % (37.2-46.3); HGB 12.4 g/dL (12.0-15.0); Immature Grans, Automated 0.20 %; Lymphocytes # (A) 2.13 X 10*3/uL (0.90-5.00); Lymphocytes % (A) 38.9 %; MCH 30.2 pg (27.0-32.0); MCHC 33.6 g/dL (32.0-37.0); MCV 89.8 FL (80.0-97.0); Monocytes # (A) 0.47 X 10*3/uL (0.20-1.00); Monocytes % (A) 8.6 %; NRBC Per 100 WBC 0 X 10*3/uL (0.00-0.01); Neutrophils # (A) 2.62 X 10*3/uL (1.80-7.70); Neutrophils % (A) 47.9 %; Platelet Count 216 X 10*3/uL (140-440); RBC 4.11 X 10*6/uL (4.10-5.20); RDW 13.2 % (11.5-14.5); WBC 5.47 X 10*3/uL (4.50-10.00)
[2025-03-03] MEDS: LORATADINE 10 MG TAB PO SCH (08:46)
[2025-03-03] MEDS: CHOLECALCIFEROL 10 MCG (400 IU) TABLET PO SCH (08:46)
[2025-03-03] MEDS: ASCORBIC ACID 500 MG TAB PO SCH (08:47)
--- NOTE | 2025-03-03 11:39 | P.PN ---
Subjective HISTORY OF PRESENT ILLNESS: This is a 59-year-old female with a past medical history significant for aortic root aneurysm, aortic regurgitation and GERD. Patient follows in the office with Dr. Pineda. Patient also follows with a physician at [facility] for her aortic root aneurysm. We have been asked to see the patient in consultation for chest pain. Patient examined at the bedside. Patient presented to the hospital with a chief complaint of palpitations and shortness of breath. Patient states she was at home sitting in her chair around 10:00 in the morning when she started to feel short of breath. She also reports having palpitations at that time. She states that she has been having palpitations for a while but she can usually get it to settle down on her own. She also reports having dizziness without any episodes of syncope. She reports having some dry heaves yesterday which have since resolved. She does report some shortness of breath over the past week with activity. She states yesterday she had some chest pain that radiated into her back. She states that she had a similar episode of chest pain about 2 weeks ago. DIAGNOSTICS: - EKG reveals sinus tachycardia with no signs of acute ischemia. - Chest xray negative for acute process. - Laboratory data: WBC 7.10. Hemoglobin 14.6. Platelet count 250. Sodium 140. Potassium 3.9. BUN 12. Creatinine 0.78. Magnesium 1.9. Troponin negative x 3. - Current home cardiac medications include aspirin 81 mg daily. - Patient underwent BRUCE in September 2024 revealing dilated aortic sinuses measuring 4.4 cm, mild MR, mild to moderate TR, and moderate aortic r egurgitation - Most recent echocardiogram obtained in August 2024 revealed ejection fraction 55%, moderate to severe aortic regurgitation, mild mitral regurgitation, moderate tricuspid regurgitation - Patient underwent exercise stress test in September 2023 which was nondiagnostic secondary to baseline EKG abnormalities - Cardiac catheterization history: Unknown 03/03/2025 Patient examined this morning the bedside. Patient currently denies any chest pain or pressure. She denies any shortness of breath. Patient underwent Lexiscan stress test yesterday which was negative for ischemia. Echocardiogram completed revealing ejection fraction 55 to 60%, cannot exclude membranous VSD, mild mitral regurgitation, moderate tricuspid regurgitation, mild to moderate aortic regurgitation. PHYSICAL EXAM: VITAL SIGNS: Reviewed. GENERAL: Well-developed in no acute distress. HEENT: Head is normocephalic. Pupils are equal, round. Sclerae anicteric. Mucous membranes of the mouth are moist. Neck supple. No JVD or thyromegaly LUNGS: Respirations even and unlabored. Lungs essentially clear to auscultation bilaterally. HEART: Regular rate and rhythm. S1 and S2 heard. Systolic and diastolic murmur noted. ABDOMEN: Soft. Nondistended. Nontender. EXTREMITIES: Normal range of motion. No clubbing or cyanosis. Peripheral pulses intact. No lower extremity edema NEUROLOGIC: Awake and alert. Oriented x 3. ASSESSMENT: Palpitations Shortness of breath Chest pain, troponin negative x 3 Moderate to severe aortic regurgitation History of aortic root aneurysm Hyperlipidemia PLAN: Continue current cardiac medications including aspirin and Lipitor Patient is stable for discharge home today from a cardiac standpoint Patient to follow-up postdischarge in the office with Dr. Pineda Nurse practitioner note has been reviewed by physician. Signing provider agrees with the documented findings, assessment, and plan of care documented by SPRAY DYER as a scribe. Objective - Vital Signs Vital signs: Vital Signs Temp 98.2 F 03/03/25 07:00 Pulse 62 03/03/25 07:00 Resp 16 03/03/25 07:00 BP 126/80 03/03/25 07:00 Pulse Ox 97 03/03/25 08:18 FiO2 Intake & Output 03/02/25 03/03/25 03/03/25 18:59 06:59 18:59 Intake Total 240 240 Balance 240 240 Intake: Oral 240 240 Other: # Voids 1 2 - Labs CBC & Chem 7: 03/03/25 05:52 03/03/25 05:52 Labs: Abnormal Lab Results - Last 24 Hours (Table) 03/02/25 03/03/25 03/03/25 Range/Units 15:01 05:52 05:52 Hct 36.9 L (37.2-46.3) % D-Dimer 0.80 H (<0.60) mg/L FEU BUN 8.3 L (9.0-27.0) mg/dL BUN/Creatinine Ratio 10.38 L (12.00-20.00) Ratio
== END 2025-03-03 12:30 | disposition home or self-care (01) ==
LOC: EC 20:19 → 6NMEDSUR 22:55
PROVIDERS: ADMIT Internal Medicine; ATTEND Internal Medicine
DX: R07.9 Chest pain, unspecified (principal); R06.02 Shortness of breath; R00.2 Palpitations; K21.9 Gastro-esophageal reflux disease without esophagitis; E78.5 Hyperlipidemia, unspecified; I25.2 Old myocardial infarction; I35.1 Nonrheumatic aortic (valve) insufficiency; Z79.82 Long term (current) use of aspirin; Z79.899 Other long term (current) drug therapy; Z86.79 Personal history of other diseases of the circulatory system; Z88.5 Allergy status to narcotic agent
CPT/HCPCS: 96376 ×3; 96361; 96375 ×2; 96374; 99285; 36415; 94760 ×2; 93005 ×2; 93017; 93306; 85379; 80053; 80048; 83690; 83735; 84484 ×2; 85025 ×2; 85610; 85730; 71046; 71275; 78452; G0378 ×3; A9500; J2270; J2405 ×2; J2785; Q9967; J2470 ×2